=== PATIENT | male | born 1975 | race Caucasian/White ===

== ENCOUNTER 2017-04-26 13:33 | Inpatient (IN) ==
[2017-04-26] MEDS ORDERED: 0.9 % Sodium Chloride 1,000 ML IVC ONE (14:11)
[2017-04-26 14:19] LABS: Basophils % 0.4 %; Eosinophils # 0.3 K/mcL (0.0-0.6); Eosinophils % 5.9 %; Hematocrit 42.8 % (37.5-50.1); Hemoglobin 14.7 g/dL (12.9-16.9); Immature Granulocytes % 0.4 % (0-4); Lymphocytes # 1.9 K/mcL (0.6-4.6); Lymphocytes % 38.9 %; Mean Corpuscular HGB Conc 34.3 g/dL (31.6-35.5); Mean Corpuscular Hemoglobin 30.4 pg (28.0-33.3); Mean Corpuscular Volume 88.4 fL (83.0-100.0); Mean Platelet Volume 10.1 fL (9.4-12.4); Monocytes # 0.4 K/mcL (0.0-1.3); Monocytes % 9.1 %; Neutrophils # 2.2 K/mcL (1.6-8.9); Platelet Count 138 K/mcL (140-400); Red Blood Count 4.84 M/mcL (4.19-5.50); Red Cell Distribution Width 13.1 % (11.5-14.5); Segmented Neutrophils % 45.3 %
[2017-04-26 14:26] LABS: Prothrombin Time 11.1 Seconds (9.4-12.1)
[2017-04-26 14:29] LABS: Activated Partial Thrombo Time 34.9 Seconds (26.0-36.0)
[2017-04-26 14:38] LABS: BUN/Creatinine Ratio 13 (6-26); Blood Urea Nitrogen 11 mg/dL (8-26); Calcium 8.8 mg/dL (8.6-10.8); Carbon Dioxide 20 mEq/L (19-29); Chloride 111 mEq/L (98-109); Glucose 85 mg/dL (70-99); Lipase 71 Units/L (8-78); Osmolality,Calculated 287 (280-300); Potassium 3.6 mEq/L (3.5-4.5); Sodium 139 mEq/L (136-145); eGFR For African Americans > 60 (> 60); eGFR For Non-African Americans > 60 (> 60)
--- NOTE | 2017-04-26 14:57 | Emergency Department Note ---
Disposition Clinical Impression: Enteritis, Lower GI bleed Disposition: Admitted As Inpatient Condition: Good Referrals: Ambreen Berger, PRECIPITATOR [Primary Care Provider] - Forms: ED Satisfaction Letter Time of Disposition: 15:44 GI Bleed HPI - General Chief complaint: ED GI Bleed Stated complaint: rectal bleeding Time Seen by Provider: 04/26/17 13:43 Source: patient Mode of arrival: ambulatory Limitations: no limitations Nursing Notes Reviewed: Yes Vital Signs Reviewed: Yes - History of Present Illness HPI Narrative: 41 year old male with HX of fibromylagia and constipation states that he has had increaed rectal bleeding for the past 3-4 days with increased weakness and sates that he has increased suprapubic pain in addition to increased constipation. PAtinet denies any other surgical history. He states that he has increased his miralax therapy and that today when he passed his stool he noticed increased blood in the toilet which was bright red in color. Patient denies nausea, vomitting, or fevers. he does states that he has had difficulty with urination due to pain altohough is able to urinate appropiately. Patient denies any other history of abdomnilal surgeries. He states his last colonoscopy was over 5 years ago and it was normal then but he has a family history of colon CA. - Related Data Home Medications Medication Instructions Recorded Confirmed Advair 250-50 Diskus 05/10/15 05/10/15 Aspirin 05/10/15 05/10/15 CarBAMazepine 05/10/15 05/10/15 Fexofenadine HCl 05/10/15 05/10/15 Fish Oil 500 mg Softgel 05/10/15 05/10/15 Gabapentin 05/10/15 05/10/15 Hydrocodone/Acetaminophen 05/10/15 05/10/15 Ipratropium 05/10/15 05/10/15 LORazepam 05/10/15 05/10/15 Lipitor 05/10/15 05/10/15 Metoprolol 05/10/15 05/10/15 Nexium 05/10/15 05/10/15 Pantoprazole 05/10/15 05/10/15 Proair Hfa 05/10/15 05/10/15 Savella 05/10/15 05/10/15 Tamsulosin 05/10/15 05/10/15 Tizanidine 05/10/15 05/10/15 Topiramate 05/10/15 05/10/15 TraZODone 05/10/15 05/10/15 Previous Rx's Medication Instructions Recorded DiphenhydraMINE [Benadryl] 25 mg PO Q6HR PRN #20 capsule 08/28/15 Hydrocortisone 1% OINT [Cortaid] 1 appl TP BID #1 tube 08/28/15 MethylPREDNISolone [Medrol] 4 mg PO BIDWM #21 tablet 08/28/15 Allergies Allergy/AdvReac Type Severity Reaction Status Date / Time duloxetine [From Cymbalta] AdvReac See Verified 04/26/17 13:40 Comments Constitutional: Denies: fever, chills, weakness, weight change Eyes: Denies: eye pain, eye discharge, vision change ENT ED: Denies: ear pain, throat pain, dental pain, hearing loss, epistaxis, congestion, dysphagia Cardiovascular: Denies: chest pain, palpitations, dyspnea on exertion, edema, syncope Respiratory: Denies: cough, dyspnea, wheezes, hemoptysis, stridor Gastrointestinal: Reports: abdominal pain, nausea, constipation, melena. Denies : vomiting, diarrhea, hematemesis, hematochezia Genitourinary: Denies: urgency, dysuria, frequency, hematuria Musculoskeletal: Denies: back pain, neck pain, arthralgia, myalgia Integumentary: Denies: rash, abrasion, lesions Neurological: Denies: headache, weakness, numbness, paresthesias, confusion, abnormal gait, vertigo Psychiatric: Denies: anxiety, depression, suicidal thoughts, homicidal thoughts , auditory hallucinations, visual hallucinations Endocrine: Denies: fatigue Hematological/Lymphatic: Denies: easy bleeding, easy bruising Allergic/Immunologic: Denies: facial swelling, urticaria Past Medical History - Past Medical History Medical history: Reports: GERD, hyperlipidemia, hypertension Psychiatric history: Reports: no psych history - Social History Smoking Status: Never smoker Smokeless Tobacco Status: No Alcohol use: Reports: none Physical Exam - General Limitations: no limitations General appearance: alert, appears intoxicated - Head Head exam: atraumatic, normocephalic, normal inspection - Eye Eye exam: Present: normal appearance, PERRL, EOMI - Expanded Eye Exam Pupils: Left: reactive - ENT ENT exam: normal exam, normal oropharynx, mucous membranes moist - Expanded ENT Exam External ear exam: Present: normal external inspection Mouth exam: Present: normal external inspection Teeth exam: Present: normal inspection Throat exam: Present: normal inspection - Neck Neck exam: Present: normal inspection, full ROM, trachea midline - Chest Chest inspection: Present: normal inspection, symmetric chest wall rise - Respiratory Respiratory exam: Present: normal lung sounds bilaterally - Cardiovascular Cardiovascular exam: Present: regular rate, normal rhythm, normal heart sounds - Abdominal Exam Abdominal exam: Present: soft, tenderness. Absent: Non-Tender, distention, guarding, rebound, rigidity Abdominal tenderness: Present: suprapubic, moderate - Rectal Exam Rectal exam: Present: normal rectal tone, heme (+) stool, bloody stool, hemorrhoids, tenderness - Extremities Exam Extremities exam: Present: normal inspection, full ROM. Absent: tenderness, pedal edema - Expanded Upper Extremity Exam Shoulder exam: Present: normal inspection, full ROM Arm exam: Present: normal inspection, full ROM Elbow exam: Present: normal inspection, full ROM Forearm/Wrist exam: Present: normal inspection, full ROM Hand exam: Present: normal inspection, full ROM Vascular exam: Normal: capillary refill, radial pulse - Expanded Lower Extremity Exam Hip/Pelvis exam: Present: normal inspection, full ROM Upper leg exam: Present: normal inspection, full ROM Knee exam: Present: normal inspection, full ROM Lower leg exam: Present: normal inspection, full ROM Ankle exam: Present: normal inspection, full ROM Foot/toe exam: Present: normal inspection, full ROM Neurovascular/Tendon exam: Absent: motor deficit, sensory deficit, tendon deficit - Back Exam Back exam: Present: normal inspection, full ROM. Absent: tenderness - Neurological Exam Neurological exam: Present: alert, oriented X3 - Expanded Neurological Exam Patient oriented to: Present: person, place, time Coma Scale Eye Opening: Spontaneous Coma Scale Motor Response: Obeys Commands Coma Scale Verbal Response: Oriented Coma Scale Total: 15 - Psychiatric Psychiatric exam: Present: normal affect, normal mood - Skin Skin exam: Present: warm, dry, intact, normal color Course Course Narrative: we will do a hemmoccult and ABCT with IV contrast and abdominal labs. IVF for therapy. - Reevaluation(s) Reevaluation #1: updatd patient on results. WE will admit to the medicine service due to enteritis and Lower GI bleed. We will start cipro/flagyl. PAtient is agreeable to plan Time: 15:44 Vital Signs Temperature 97.6 F 04/26/17 13:36 Pulse Rate 78 04/26/17 13:36 Respiratory Rate 16 04/26/17 13:36 Blood Pressure 133/72 04/26/17 13:36 O2 Sat by Pulse Oximetry 100 04/26/17 13:36 Temperature 97.6 F 04/26/17 13:36 Pulse Rate 77 04/26/17 15:08 Respiratory Rate 18 04/26/17 15:08 Blood Pressure 113/76 04/26/17 15:08 O2 Sat by Pulse Oximetry 97 04/26/17 15:08 Oxygen Delivery Oxygen Delivery Room Air GI Bleed - Lab Data Result diagrams: 04/26/17 14:09 04/26/17 14:09 Lab Results 04/26/17 04/26/17 04/26/17 Range/Units 14:09 14:09 14:09 WBC 4.8 (4.3-11.1) K/mcL RBC 4.84 (4.19-5.50) M/mcL Hgb 14.7 (12.9-16.9) g/dL Hct 42.8 (37.5-50.1) % MCV 88.4 (83.0-100.0) fL MCH 30.4 (28.0-33.3) pg MCHC 34.3 (31.6-35.5) g/dL RDW 13.1 (11.5-14.5) % Plt Count 138 L (140-400) K/mcL MPV 10.1 (9.4-12.4) fL Immature Gran % 0.4 (0-4) % Seg Neutrophils % 45.3 % Lymphocytes % 38.9 % Monocytes % 9.1 % Eosinophils % 5.9 % Basophils % 0.4 % Neutrophils # 2.2 (1.6-8.9) K/mcL Lymphocytes # 1.9 (0.6-4.6) K/mcL Monocytes # 0.4 (0.0-1.3) K/mcL Eosinophils # 0.3 (0.0-0.6) K/mcL Basophils # 0.0 (0.0-0.2) K/mcL PT 11.1 (9.4-12.1) Seconds INR 1.0 APTT 34.9 (26.0-36.0) Seconds Sodium 139 (136-145) mEq/L Potassium 3.6 (3.5-4.5) mEq/L Chloride 111 H (98-109) mEq/L Carbon Dioxide 20 (19-29) mEq/L BUN 11 (8-26) mg/dL Creatinine 0.84 (0.72-1.25) mg/dL Est GFR ( Amer) > 60 (> 60) Est GFR (Non-Af Amer) > 60 (> 60) BUN/Creatinine Ratio 13 (6-26) Glucose 85 (70-99) mg/dL Calculated Osmolality 287 (280-300) Lactic Acid (0.5-2.2) mmol/L Calcium 8.8 (8.6-10.8) mg/dL Troponin I (0-0.03) ng/mL Lipase 71 (8-78) Units/L Stool Occult Blood (Negative) Blood Type Antibody Screen 04/26/17 04/26/17 04/26/17 Range/Units 14:09 14:25 14:25 WBC (4.3-11.1) K/mcL RBC (4.19-5.50) M/mcL Hgb (12.9-16.9) g/dL Hct (37.5-50.1) % MCV (83.0-100.0) fL MCH (28.0-33.3) pg MCHC (31.6-35.5) g/dL RDW (11.5-14.5) % Plt Count (140-400) K/mcL MPV (9.4-12.4) fL Immature Gran % (0-4) % Seg Neutrophils % % Lymphocytes % % Monocytes % % Eosinophils % % Basophils % % Neutrophils # (1.6-8.9) K/mcL Lymphocytes # (0.6-4.6) K/mcL Monocytes # (0.0-1.3) K/mcL Eosinophils # (0.0-0.6) K/mcL Basophils # (0.0-0.2) K/mcL PT (9.4-12.1) Seconds INR APTT (26.0-36.0) Seconds Sodium (136-145) mEq/L Potassium (3.5-4.5) mEq/L Chloride (98-109) mEq/L Carbon Dioxide (19-29) mEq/L BUN (8-26) mg/dL Creatinine (0.72-1.25) mg/dL Est GFR ( Amer) (> 60) Est GFR (Non-Af Amer) (> 60) BUN/Creatinine Ratio (6-26) Glucose (70-99) mg/dL Calculated Osmolality (280-300) Lactic Acid 1.0 (0.5-2.2) mmol/L Calcium (8.6-10.8) mg/dL Troponin I 0.00 (0-0.03) ng/mL Lipase (8-78) Units/L Stool Occult Blood (Negative) Blood Type O NEGATIVE Antibody Screen NEGATIVE 04/26/17 Range/Units 14:36 WBC (4.3-11.1) K/mcL RBC (4.19-5.50) M/mcL Hgb (12.9-16.9) g/dL Hct (37.5-50.1) % MCV (83.0-100.0) fL MCH (28.0-33.3) pg MCHC (31.6-35.5) g/dL RDW (11.5-14.5) % Plt Count (140-400) K/mcL MPV (9.4-12.4) fL Immature Gran % (0-4) % Seg Neutrophils % % Lymphocytes % % Monocytes % % Eosinophils % % Basophils % % Neutrophils # (1.6-8.9) K/mcL Lymphocytes # (0.6-4.6) K/mcL Monocytes # (0.0-1.3) K/mcL Eosinophils # (0.0-0.6) K/mcL Basophils # (0.0-0.2) K/mcL PT (9.4-12.1) Seconds INR APTT (26.0-36.0) Seconds Sodium (136-145) mEq/L Potassium (3.5-4.5) mEq/L Chloride (98-109) mEq/L Carbon Dioxide (19-29) mEq/L BUN (8-26) mg/dL Creatinine (0.72-1.25) mg/dL Est GFR ( Amer) (> 60) Est GFR (Non-Af Amer) (> 60) BUN/Creatinine Ratio (6-26) Glucose (70-99) mg/dL Calculated Osmolality (280-300) Lactic Acid (0.5-2.2) mmol/L Calcium (8.6-10.8) mg/dL Troponin I (0-0.03) ng/mL Lipase (8-78) Units/L Stool Occult Blood Positive A (Negative) Blood Type Antibody Screen - EKG Data EKG attestation: Yes I reviewed and interpreted this EKG. EKG results narrative: NSR with rat eof 62. NO STEMI. normal intervals. no old ekg. 1420
[2017-04-26] MEDS ORDERED: MetroNIDAZOLE 500 MG/100 ML 500 MG/100 ML BAG IVPB ONE (15:29)
[2017-04-26] MEDS ORDERED: Ondansetron 4 MG/2 ML VIAL IVP PRN (18:38)
[2017-04-26] MEDS ORDERED: Naloxone 0.4 MG/ML INJ IVP PRN (18:38)
[2017-04-26] MEDS ORDERED: Acetaminophen 325 MG TABLET PO PRN (18:38)
--- NOTE | 2017-04-26 19:13 | Internal Med History&Physical ---
<Benigno Holcomb - Last Filed: 04/26/17 20:17> Date of Encounter: 04/26/17 Time of Encounter: 18:00 Assessment and Plan (1) Enteritis Current visit: Yes Status: Acute Patient presents with rectal bleeding as well as pain that he states is in his abdomen, suprapubic area, and perianal area. These areas are very tender during examination. CT of the abdomen/pelvis with IV contrast but no oral contrast today shows a few borderline to mildly dilated small bowel loops, some distended with fluid. These findings can be associated with a low-grade enteritis. Patient's pain most likely related to current infection. Patient received IV Flagyl and ciprofloxacin while in the ED and these will be continued with IV Flagyl at 500 mg Q8 and IV ciprofloxacin at 400 mg Q12. GI consult ordered and discussed with Dr. Muse who will see the patient. Will monitor patient for signs of increasing pain, infection, and/or bleeding. (2) GI bleeding Current visit: Yes Status: Acute Patient presents with acute on chronic GI bleed. He states he has had black, tarry stool for the past 24 hours along with bright blood in his underwear that is likely related to GI bleed of unknown source as well as hemorrhoids based on patient's report of previous hemorrhoids. Patient's current Hgb/Hct is 14.7/ 42.8. He states that he is now unable to have a bowel movement at the present time. He reports use of Miralax at home. GI consult ordered and discussed with Dr. Muse who recommends holding bowel prep until he can assess patient further. Will monitor patient for bleeding and monitor follow-up labs. Qualifiers: GI bleed type/associated pathology: unspecified gastrointestinal hemorrhage type Qualified Code(s): K92.2 - Gastrointestinal hemorrhage, unspecified (3) Urinary hesitancy Current visit: Yes Status: Acute Patient presents with acute urinary hesitancy. He states that he has had trouble with urination in the past due to his enlarged prostate. He currently states that he cannot urinate without difficulty. Bladder scan reveals 328 residual. Patient attempted to urinate but could not. PSA ordered to monitor BPH. Urinary hesitancy most likely related to patient's BPH but could also be due to swelling/edema related to current enteritis interfering with his bladder. Will insert Jacob catheter if necessary to help patient void and reduce his pain/discomfort. Urine culture ordered to assess for possible infection. (4) Weakness Current visit: Yes Status: Acute Patient presents with acute weakness most likely related to his chronic pain and current symptoms of enteritis. Patient to be placed as falls precautions/up with assist/bed rest with bathroom privileges with assist only due to current weakness. (5) Tobacco abuse counseling Current visit: Yes Status: Acute Patient reports use of chewing tobacco due to anxiety. Patient counseled greater than 10 minutes on the dangers of tobacco use and potential cancer risk and his history of familial cancers. Patient confirms understanding of counseling and discussion and expresses a desire to discontinue use of oral tobacco use. (6) GERD (gastroesophageal reflux disease) Current visit: Yes Status: Chronic Patient presents with history of chronic gastroesophageal reflux disease. Patient states he has long history of GI issues since he was a child. IVP Protonix 40 mg daily ordered. Qualifiers: Esophagitis presence: esophagitis presence not specified Qualified Code(s) : K21.9 - Gastro-esophageal reflux disease without esophagitis (7) HTN (hypertension) Current visit: Yes Status: Chronic Patient presents with history of chronic hypertension. Will monitor patient vital signs and continue patient's lisinopril and metoprolol. Qualifiers: Hypertension type: essential hypertension Qualified Code(s): I10 - Essential (primary) hypertension (8) HLD (hyperlipidemia) Current visit: Yes Status: Chronic Patient presents with history of chronic hyperlipidemia. Lipid panel ordered. Will continue patient's Lipitor and fish oil by mouth. Qualifiers: Hyperlipidemia type: pure hypercholesterolemia Qualified Code(s): E78.00 - Pure hypercholesterolemia, unspecified; E78.0 - Pure hypercholesterolemia (9) COPD (chronic obstructive pulmonary disease) Current visit: Yes Status: Acute Patient presents with history of chronic COPD and current shortness of breath. Patient denies use of home O2 but will be placed on supplemental O2 with continuous SpO2 monitoring due to current SOB and weakness. DuoNebs ordered Q6 scheduled. Qualifiers: COPD type: unspecified COPD Qualified Code(s): J44.9 - Chronic obstructive pulmonary disease, unspecified (10) Irritable bowel syndrome (IBS) Current visit: Yes Status: Acute Patient presents with history of chronic IBS with constipation. Patient reports he takes Miralax daily to help with constipation but reports that since passing the black stools over the past 48 hours, he now unable to have a BM. He reports stools were small in amount, solid, and frequent. He states he feels bloated and that he needs to have a BM but cannot due to current pain. Will continue with Colace PO and use Miralax if not successful. Will hold Miralax/Gatorade bowel prep for evacuation per Dr. Muse who has agreed to consult on the patient. Will monitor I&O and stool for signs of bleeding. Qualifiers: Irritable bowel syndrome type: with constipation Qualified Code(s): K58.1 - Irritable bowel syndrome with constipation (11) DVT prophylaxis Current visit: Yes Status: Acute Patient to be placed on DVT prophylaxis due to current admission protocol and bed rest status. Due to current GI bleeding, pharmacologic DVT prophylaxis is contraindicated and will be replaced with bilateral SCDs on patient's LEs. Internal Medicine - H&P: HPI Chief complaint: Rectal bleeding Admitted From: Emergency Dept Plans for Post Hospital Care: Home History of present illness: Mr. Wood is a 41 year old male who presents from the ED with chief complaint of rectal bleeding. He reports black stool for the past two days mixed with bright red blood in his underwear. Patient states that 48 hours ago the black stool was in small amounts but he went frequently. Now he reports that he cannot deficate at all and he is now having difficulty urinating as well. Ordered bladder scan showed [address] of the abdomen/pelvis today w ith IV but no oral contrast shows a few borderline to mildly dilated small bowel loops, some distended with fluid. These findings can be associated with low-grade enteritis Mr. Wood has a medical history of IBS , chronic constipation, GERD, COPD, HTN, HLD, BPH, and fibromyalgia. He currently reports abdominal pain, suprapubic pain, as well as perianal pain. He reports weakness, shortness of breath, and nausea but denies vomiting, fever, recent illness, vision changes, cough, chest pain, numbness, tingling, or diarrhea. Patient's family has a history of cancer, including colon. Patient is at high risk for bleeding based on current symptoms and risk factors and will be placed as inpatient status with orders for GI consult which was placed and discussed with Dr. Muse. Patient received IV Flagyl and IV ciprofloxacin while in the ED and we will continue the Flagyl at 500 mg IVPB Q8 and the ciprofloxacin at 40 mg at Q12. IV fluids at 100mL/HR ordered. Will administer pain medication to help patient relax to determine if he is able to urinate. If unable, will initiate Jacob catheter. Patient placed on continuous telemetry, supplemental O2 for his COPD, and we will measure I&O and daily weight. Patient to be monitored closely for blood loss and H/H status (which is currently within normal range) through follow-up labs. PSA ordered to determine if patient 's BPH is interfering with urination. Time spent with patient and family >40 minutes. Past Med Surg Social Fam HX - Past Medical History Source: patient Medical history: COPD, fibromyalgia, GERD, hyperlipidemia, hypertension, other ( IBS) Psychiatric history: anxiety, depression - Social History Smoking Status: Never smoker Smokeless Tobacco Status: No Alcohol use: none Drug use: none Current living situation: Home, With Family Activity Level: Independent ambulation Recent Out of Country Travel Within the Last 8 Weeks: No Exposure or Possible Exposure to Illness During Travel: No - Family History Mother Race: Family Member Ethnicity: Non- Living Status: Age at : 65 Cause of : Hodgkins lymphoma Hx Family Cardiac Disorders: Yes (HD) Hx Family Cancer: Yes (Hodgkins lymphoma, Breast cancer) Father Race: Family Member Ethnicity: Non- Living Status: Age at : 73 Hx Family Respiratory Disorders: Yes (Fungus on lungs, Lobectomy) Hx Family Endocrine Disorder: Yes (Addisons disease) Brother Race: Family Member Ethnicity: Non- Living Status: Age at : 54 Cause of : Colon cancer Hx Family Cancer: Yes (Colon Cancer) Sister Race: Family Member Ethnicity: Non- Living Status: Still Living Hx Family Cancer: Yes (Female cancer, Breast cancer) Internal Medicine - H&P: Meds Albuterol Sulfate [Proair Hfa] 2 puff IH Q4-6H PRN 04/26/17 [History] Atorvastatin Calcium [Lipitor] 80 mg PO HS 04/26/17 [History] Cholecalciferol (D-3) [Vitamin D] 5,000 unit PO DAILY 04/26/17 [History] Esomeprazole Magnesium [Nexium] 40 mg PO QAM 04/26/17 [History] Fexofenadine HCl 180 mg PO DAILY 04/26/17 [History] Fluticasone/Salmeterol [Advair 250-50 Diskus] 1 puff IH BID 04/26/17 [History] Gabapentin [Neurontin] 300 mg PO BID 04/26/17 [History] HYDROcodone/Acet 10/325 mg [Tracy 10-325 mg] 1 tab PO BID PRN 04/26/17 [History] Ipratropium [place] 2 spr NS BID 04/26/17 [History] Lisinopril [Zestril] 10 mg PO DAILY 04/26/17 [History] Metoprolol Succinate 25 mg PO DAILY 04/26/17 [History] Milnacipran HCl [Savella] 50 mg PO DAILY 04/26/17 [History] Montelukast [Singulair] 10 mg PO DAILY 04/26/17 [History] Heron-3/Dha/Epa/Fish Oil [Fish Oil 1,000 mg Softgel] 1 cap PO DAILY 04/26/17 [ History] Pantoprazole Sodium [Protonix] 40 mg PO DAILY 04/26/17 [History] Tamsulosin HCl [Flomax] 0.4 mg PO DAILY 04/26/17 [History] Tizanidine HCl [Zanaflex] 8 mg PO HS 04/26/17 [History] Topiramate [Topamax] 200 mg PO BID 04/26/17 [History] Trazodone HCl 300 mg PO HS 04/26/17 [History] carBAMazepine [Tegretol] 200 mg PO BID 04/26/17 [History] diazePAM [Valium] 2 mg PO BID 04/26/17 [History] Allergies duloxetine [From Cymbalta] Adverse Reaction (Verified 04/26/17 15:55) See Comments ALTERED MENTAL STATUS All Systems PM: A 10-system review of systems was performed and is negative for pertinent findings except as documented above in the HPI. - Constitutional Constitutional: as per HPI, weakness, no chills, no fever(s), no night sweats - EENT Eyes: no change in vision, no discharge, no pain, no photophobia Ears: no ear discharge, no ear pain, no tinnitus Nose, mouth and throat: no dysphagia, no nasal discharge, no neck pain, no sore throat - Breasts Breasts: as per HPI - Cardiovascular Cardiovascular ROS IM: as per HPI, dyspnea, no chest pain, no diaphoresis, no lightheadedness, no palpitations, no syncope - Respiratory Respiratory: as per HPI, dyspnea, no cough, no wheezing, no excessive phlegm production - Gastrointestinal Gastrointestinal: as per HPI, abdominal pain, change in bowel habits, change in stool character, constipation, melena, nausea - Genitourinary Genitourinary ROS male: as per HPI, difficulty urinating, dysuria, urinary hesitancy - Musculoskeletal Musculoskeletal ROS IM: no numbness, no tingling - Integumentary Integumentary IM: no rash, no unusual bruising - Neurological Neurological ROS: no confusion, no convulsions, no focal weakness, no numbness, no tingling, no tremor(s) - Psychiatric Psychiatric: as per HPI - Endocrine Endocrine IM: as per HPI - Hematologic/Lymphatic Hematologic/Lymphatic: no easy bruising - Allergic/Immunologic Allergic/Immunologic: as per HPI - Constitutional Vitals: Temp Pulse Resp BP Pulse Ox 97.6 F 77 18 148/97 97 04/26/17 13:36 04/26/17 15:08 04/26/17 17:09 04/26/17 17:09 04/26/17 15:08 General appearance: Present: cooperative, mild distress, A&O X 3, pleasant, obese, answers questions appropriately - Head Head exam: Present: atraumatic, normocephalic - Eye Eye exam: Present: PERRL, conjuntiva pink, sclera anicteric Pupils: Present: PERRL - ENT ENT exam: Present: normal exam, normal external ear exam - Neck Neck exam general surgery: Present: normal inspection, supple, trachea midline. Absent: lymphadenopathy - Respiratory Respiratory exam: Present: CTAB. Absent: accessory muscle use, rales, rhonchi, wheezes - Cardiovascular Cardiovascular exam: Present: RRR, +S1, +S2. Absent: diastolic murmur, gallop, rubs, systolic murmur - GI/Abdominal GI/Abdominal exam: Present: diminished bowel sounds, soft, no peritoneal signs. Absent: distended, tenderness - Rectal Rectal exam: Present: deferred (Due to extreme rectal pain. Patient reports previous exam yielded bright red blood.) - Additional comments: exam deferred. - Extremities Exam Extremities exam: Present: warm, radial pulses palpable and symmetrical. Absent : calf tenderness, cyanotic, pedal edema - Back Exam Back exam: Present: normal inspection - Neurological Exam Neurological exam: Present: CN II-XII intact, oriented X3, no focal deficits. Absent: pronater drift, facial droop, speech deficit - Psychiatric Psychiatric exam: Present: normal affect, normal mood - Skin Skin exam: Present: dry, intact Internal Med - H&P Results - Labs CBC & Chem 7: 04/26/17 14:09 04/26/17 14:09 - EKG Data EKG shows normal: sinus rhythm Rate: normal - EKG Data Prior EKG available for review: no Interpretation IM: normal EKG - Diagnostic Studies CT scan - abdomen Additional comments: Impressions Abdomen/Pelvis CT 04/26/17 14:11 IMPRESSION: 1. A few borderline to mildly dilated small bowel loops, some distended with fluid. These findings can be associated with a low-grade enteritis. 2. A few additional incidental findings as above. D/ / Chaitanya Bansal MD / Chaitanya Bansal MD Interpreting Provider: Chaitanya Bansal MD <Koby Esteban - Last Filed: 04/27/17 08:39> Date of Encounter: 04/27/17 Internal Medicine - H&P: HPI History of present illness: Mr. Wood is a 41 year old male All Systems PM: A 10-system review of systems was performed and is negative for pertinent findings except as documented above in the HPI. - Constitutional Vitals: Temp Pulse Resp BP Pulse Ox 97.6 F 64 18 104/59 98 04/27/17 05:50 04/27/17 05:50 04/27/17 05:50 04/27/17 05:50 04/27/17 05:50 Internal Med - H&P Results - Labs CBC & Chem 7: 04/27/17 02:46 04/27/17 02:46 Labs: Short CBC 04/27/17 Range/Units 02:46 WBC 5.9 (4.3-11.1) K/mcL Hgb 13.6 (12.9-16.9) g/dL Hct 39.0 (37.5-50.1) % Plt Count 140 (140-400) K/mcL Neutrophils # 2.8 (1.6-8.9) K/mcL BMP 04/27/17 02:46 Sodium 144 Potassium 3.8 Chloride 115 H Carbon Dioxide 22 BUN 9 Creatinine 0.92 Glucose 91 Calcium 8.9 Liver Function 04/27/17 Range/Units 02:46 Total Bilirubin 0.5 (0.2-1.2) mg/dL Direct Bilirubin 0.2 (0.0-0.5) mg/dL AST 17 (5-34) Units/L ALT 39 (0-55) Units/L Alkaline Phosphatase 69 (38-126) Units/L Albumin 3.3 L (3.5-5.0) g/dL - Attending Attestation I examined this patient and my medical decision-making was reviewed with the [employer]. I agree with the documented findings, disposition and treatment plan as described .
[2017-04-26] MEDS: 0.9 % Sodium Chloride 1,000 ML IVC SCH (19:36)
[2017-04-26] MEDS: Pantoprazole 40 MG VIAL IVP SCH (19:37)
[2017-04-26] MEDS: *HR* Morphine 2 MG/ML SYRINGE IVP PRN (19:37)
[2017-04-26] MEDS: Ipratropium/Albuterol Neb 3 ML IH SCH ×2 (20:10→21:13)
[2017-04-26] MEDS: traZODone 50 MG TABLET PO SCH (20:18)
[2017-04-26] MEDS: Topiramate 100 MG TABLET PO SCH (20:19)
[2017-04-26] MEDS: carBAMazepine 200 MG TABLET PO SCH (20:19)
[2017-04-26] MEDS: Gabapentin 300 MG CAPSULE PO SCH (20:20)
[2017-04-26] MEDS: tiZANidine 4 MG TABLET PO SCH (20:20)
[2017-04-26] MEDS: *HR* HYDROcodone/Acet 5/325 mg TABLET PO PRN (21:34)
[2017-04-26] MEDS: diazePAM 2 MG TABLET PO SCH (21:35)
[2017-04-26] MEDS: MetroNIDAZOLE 500 MG/100 ML 500 MG/100 ML BAG IVPB SCH (23:53)
[2017-04-27 03:04] LABS: Basophils % 0.2 %; Eosinophils # 0.3 K/mcL (0.0-0.6); Eosinophils % 5.4 %; Hemoglobin 13.6 g/dL (12.9-16.9); Immature Granulocytes % 0.5 % (0-4); Lymphocytes # 2.3 K/mcL (0.6-4.6); Lymphocytes % 38.7 %; Mean Corpuscular HGB Conc 34.9 g/dL (31.6-35.5); Mean Corpuscular Hemoglobin 31.3 pg (28.0-33.3); Mean Corpuscular Volume 89.9 fL (83.0-100.0); Mean Platelet Volume 10.6 fL (9.4-12.4); Monocytes # 0.5 K/mcL (0.0-1.3); Monocytes % 7.8 %; Neutrophils # 2.8 K/mcL (1.6-8.9); Platelet Count 140 K/mcL (140-400); Red Blood Count 4.34 M/mcL (4.19-5.50); Red Cell Distribution Width 13.1 % (11.5-14.5); Segmented Neutrophils % 47.4 %
[2017-04-27 03:12] LABS: INR 1.1; Prothrombin Time 11.7 Seconds (9.4-12.1)
[2017-04-27 03:14] LABS: Activated Partial Thrombo Time 34.7 Seconds (26.0-36.0)
[2017-04-27 03:17] LABS: Albumin 3.3 g/dL (3.5-5.0); Albumin/Globulin Ratio 1.2 (1.1-2.2); Bilirubin,Direct 0.2 mg/dL (0.0-0.5); Bilirubin,Indirect 0.3 mg/dL (0.0-1.2); Bilirubin,Total 0.5 mg/dL (0.2-1.2); Globulin 2.7 g/dL (2.4-3.5)
[2017-04-27 03:18] LABS: BUN/Creatinine Ratio 10 (6-26); Blood Urea Nitrogen 9 mg/dL (8-26); Calcium 8.9 mg/dL (8.6-10.8); Carbon Dioxide 22 mEq/L (19-29); Chloride 115 mEq/L (98-109); Chol/HDL Ratio 8.8 (0-4.9); Cholesterol 211 mg/dL (< 200); Glucose 91 mg/dL (70-99); HDL Cholesterol 24 mg/dL (40-59); LDL Cholesterol,Calculated 121 mg/dL (0-99); Magnesium 1.7 mg/dL (1.6-2.6); Osmolality,Calculated 296 (280-300); Potassium 3.8 mEq/L (3.5-4.5); Sodium 144 mEq/L (136-145); Triglycerides 330 mg/dL (< 150); eGFR For African Americans > 60 (> 60); eGFR For Non-African Americans > 60 (> 60)
[2017-04-27] MEDS: Ipratropium/Albuterol Neb 3 ML IH SCH ×4 (03:50→22:28)
[2017-04-27] MEDS: *HR* Morphine 2 MG/ML SYRINGE IVP PRN (06:48)
[2017-04-27] MEDS: MetroNIDAZOLE 500 MG/100 ML 500 MG/100 ML BAG IVPB SCH ×2 (08:00→15:37)
[2017-04-27] MEDS: Pantoprazole 40 MG VIAL IVP SCH (08:05)
[2017-04-27] MEDS: Gabapentin 300 MG CAPSULE PO SCH ×2 (08:11→21:31)
[2017-04-27] MEDS: diazePAM 2 MG TABLET PO SCH ×2 (08:11→21:29)
[2017-04-27] MEDS: Loratadine 10 MG TABLET PO SCH (08:11)
[2017-04-27] MEDS: Metoprolol XL (24 HR) Succ 25 MG TAB.ER.24H PO SCH ×3 (08:12→17:50)
[2017-04-27] MEDS: Topiramate 100 MG TABLET PO SCH ×2 (08:12→21:30)
[2017-04-27] MEDS: carBAMazepine 200 MG TABLET PO SCH ×2 (08:14→21:31)
[2017-04-27] MEDS: Cholecalciferol (D-3) 1,000 UNIT TABLET PO SCH (08:15)
[2017-04-27 10:20] LABS: Bilirubin,Urine Negative (Negative); Blood,Urine Negative (Negative); Clarity,Urine Clear (Clear); Color,Urine Yellow (Yellow); Glucose,Urine (UA) Normal (Normal); Ketones,Urine Negative (Negative); Leukocyte Esterase,Urine Negative (Negative); Nitrite,Urine Negative (Negative); PH,Urine 5.5 pH Units (5.0-8.0); Protein,Urine Negative (Neg-Trace); Specific Gravity,Urine 1.022 (1.010-1.025); Urobilinogen,Urine Normal (Normal)
[2017-04-27] MEDS: 0.9 % Sodium Chloride 1,000 ML IVC SCH (12:03)
--- NOTE | 2017-04-27 14:07 | Internal Med Progress Note ---
Date of Encounter: 04/27/17 Time of Encounter: 11:10 - Assessment and plan (1) GI bleeding Current Visit: Yes Status: Acute Assessment and plan: Hemoglobin levels are stable. Currently nothing by mouth but will start clears if patient does not have any further episodes of GI bleed. Gastroenterology has been consulted. We will follow recommendations. on IV Protonix. Moderate risk for complications Qualifiers: GI bleed type/associated pathology: anorectal hemorrhage Qualified Code(s) : K62.5 - Hemorrhage of anus and rectum (2) Enteritis Current Visit: Yes Status: Acute Assessment and plan: Being treated for enteritis with ciprofloxacin and Flagyl. No signs of systemic inflammation (3) COPD (chronic obstructive pulmonary disease) Current Visit: Yes Status: Chronic Assessment and plan: On bronchodilators. Not in acute exacerbation Qualifiers: COPD type: unspecified COPD Qualified Code(s): J44.9 - Chronic obstructive pulmonary disease, unspecified (4) GERD (gastroesophageal reflux disease) Current Visit: Yes Status: Chronic Assessment and plan: Continue PPI Qualifiers: Esophagitis presence: esophagitis presence not specified Qualified Code(s) : K21.9 - Gastro-esophageal reflux disease without esophagitis (5) HLD (hyperlipidemia) Current Visit: Yes Status: Chronic Assessment and plan: Continue atorvastatin. Cholesterol levels are elevated Qualifiers: Hyperlipidemia type: pure hypercholesterolemia Qualified Code(s): E78.00 - Pure hypercholesterolemia, unspecified; E78.0 - Pure hypercholesterolemia (6) HTN (hypertension) Current Visit: Yes Status: Chronic Assessment and plan: Blood pressure is well controlled Qualifiers: Hypertension type: essential hypertension Qualified Code(s): I10 - Essential (primary) hypertension (7) Irritable bowel syndrome (IBS) Current Visit: Yes Status: Chronic Assessment and plan: Chronic condition. GI to evaluate patient Qualifiers: Irritable bowel syndrome type: with constipation Qualified Code(s): K58.1 - Irritable bowel syndrome with constipation (8) Urinary hesitancy Current Visit: Yes Status: Acute Assessment and plan: Patient is able to urinate without difficulty. On Flomax. Recommend outpatient follow-up with urology (9) Weakness Current Visit: Yes Status: Acute Assessment and plan: Likely related to GI bleed. Continue IV hydration. (10) DVT prophylaxis Current Visit: Yes Status: Acute Assessment and plan: With SCDs - Subjective Interval history: Patient complains of abdominal pain along with nausea. He has not had any bowel movements today. Does report a history of hemorrhoids and is also complaining of difficulty passing urine. No fever or night sweats reported. Feels hungry and thirsty and wants some ice chips. - Constitutional Vitals: Temp Pulse Resp BP Pulse Ox 97.5 F L 60 16 92/55 97 04/27/17 12:10 04/27/17 12:10 04/27/17 12:10 04/27/17 12:10 04/27/17 12:10 General appearance: Present: cooperative, A&O X 3, pleasant, obese, answers questions appropriately - Neck Neck exam general surgery: Present: supple, trachea midline. Absent: lymphadenopathy - Cardiovascular Cardiovascular exam: Present: RRR, +S1, +S2. Absent: diastolic murmur, gallop, rubs, systolic murmur - GI/Abdominal GI/Abdominal exam: Present: normal bowel sounds, soft, no peritoneal signs. Absent: distended, tenderness - Extremities Exam Extremities exam: Present: warm, radial pulses palpable and symmetrical. Absent : calf tenderness, cyanotic, pedal edema - Neurological Exam Neurological exam: Present: alert, CN II-XII intact, oriented X3, no focal deficits, strengths equal and symetr throughout. Absent: facial droop, speech deficit Internal Medicine: Result - Labs CBC & Chem 7: 04/27/17 02:46 04/27/17 02:46 Labs: Short CBC 04/27/17 Range/Units 02:46 WBC 5.9 (4.3-11.1) K/mcL Hgb 13.6 (12.9-16.9) g/dL Hct 39.0 (37.5-50.1) % Plt Count 140 (140-400) K/mcL Neutrophils # 2.8 (1.6-8.9) K/mcL BMP 04/27/17 02:46 Sodium 144 Potassium 3.8 Chloride 115 H Carbon Dioxide 22 BUN 9 Creatinine 0.92 Glucose 91 Calcium 8.9 Liver Function 04/27/17 Range/Units 02:46 Total Bilirubin 0.5 (0.2-1.2) mg/dL Direct Bilirubin 0.2 (0.0-0.5) mg/dL AST 17 (5-34) Units/L ALT 39 (0-55) Units/L Alkaline Phosphatase 69 (38-126) Units/L Albumin 3.3 L (3.5-5.0) g/dL Urine 04/27/17 Range/Units 09:50 Urine Color Yellow (Yellow) Urine Clarity Clear (Clear) Urine pH 5.5 (5.0-8.0) pH Units Ur Specific [place] 1.022 (1.010-1.025) Urine Protein Negative (Neg-Trace) mg/dL Urine Glucose (UA) Normal (Normal) mg/dL - ABG Interpretation ABG results: PT/INR, D-dimer PT 11.7 Seconds (9.4-12.1) 04/27/17 02:46 Consult Discharge Plan - Plan Referrals: Ambreen Berger, [facility]OVER [Primary Care Provider] -
[2017-04-27] MEDS: D5% in 0.9% NACL 1,000 ML IVC SCH (15:29)
--- NOTE | 2017-04-27 17:36 | Electrocardiograph Report ---
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
[2017-04-27] MEDS: traZODone 50 MG TABLET PO SCH (21:29)
[2017-04-27] MEDS: tiZANidine 4 MG TABLET PO SCH (21:30)
[2017-04-28] MEDS: Ipratropium/Albuterol Neb 3 ML IH SCH ×2 (03:35→10:49)
[2017-04-28] MEDS: D5% in 0.9% NACL 1,000 ML IVC SCH (05:51)
[2017-04-28] MEDS: *HR* HYDROcodone/Acet 5/325 mg TABLET PO PRN (05:53)
[2017-04-28 06:09] LABS: Hematocrit 39.5 % (37.5-50.1); Hemoglobin 13.3 g/dL (12.9-16.9)
[2017-04-28] MEDS: Gabapentin 300 MG CAPSULE PO SCH ×2 (09:14→20:40)
[2017-04-28] MEDS: Loratadine 10 MG TABLET PO SCH (09:14)
[2017-04-28] MEDS: Cholecalciferol (D-3) 1,000 UNIT TABLET PO SCH (09:14)
[2017-04-28] MEDS: Pantoprazole 40 MG VIAL IVP SCH (09:14)
[2017-04-28] MEDS: MetroNIDAZOLE 500 MG/100 ML 500 MG/100 ML BAG IVPB SCH ×3 (09:14→16:23)
[2017-04-28] MEDS: carBAMazepine 200 MG TABLET PO SCH ×2 (09:15→20:40)
[2017-04-28] MEDS: diazePAM 2 MG TABLET PO SCH ×2 (09:15→20:41)
[2017-04-28] MEDS: Topiramate 100 MG TABLET PO SCH ×2 (09:15→20:41)
--- NOTE | 2017-04-28 10:56 | Gastroenterology Consult Note ---
<GlassChaitanya Matthew - Last Filed: 04/28/17 10:53> Date of Encounter: 04/28/17 Time of Encounter: 10:05 - Assessment and plan (1) Enteritis Current Visit: Yes Status: Acute Assessment and plan: CT A/P showed a few borderline to mildly dilated small bowel loops, some distended with fluid, which could be associated with low-grade enteritis. Continue IV ATBs. (2) GI bleeding Current Visit: Yes Status: Acute Assessment and plan: Pt with melena and BRBPR. Hgb 14.7 on admission and 13.3 today. Plan for EGD today to r/o esophagitis, gastritis, duodenitis, PUD, MW tear, or AVM. If EGD negative will plan for colonoscopy tomorrow. Qualifiers: GI bleed type/associated pathology: anorectal hemorrhage Qualified Code(s) : K62.5 - Hemorrhage of anus and rectum (3) GERD (gastroesophageal reflux disease) Current Visit: Yes Status: Chronic Assessment and plan: Continue PPI. Qualifiers: Esophagitis presence: esophagitis presence not specified Qualified Code(s) : K21.9 - Gastro-esophageal reflux disease without esophagitis (4) Irritable bowel syndrome (IBS) Current Visit: Yes Status: Chronic Assessment and plan: Use daily fiber supplement and Miralax up to BID. Qualifiers: Irritable bowel syndrome type: with constipation Qualified Code(s): K58.1 - Irritable bowel syndrome with constipation (5) Dysphagia Current Visit: Yes Status: Acute Assessment and plan: Plan for EGD today with possible dilation. Qualifiers: Dysphagia type: unspecified Qualified Code(s): R13.10 - Dysphagia, unspecified - Time Spent With Patient Total time spent is greater than 50% in coordination of care (as documented) at patient's floor/unit and/or counseling patient: GI History of Present Illness - Data of Consult Patient: new to practice Consult date: 04/28/17 Requesting Physician: Roselyn Doty MD - Consult Narrative Reason for consult: Black stool, FOBT positive, BRBPR History of present illness: Mr. Wood is a 41 year old male with PMHx of COPD, fibromyalgia, GERD, HLD, HTN, and IBS who presented to the ED with rectal bleeding. He reported black stool for the two days prior to admission, mixed with bright red blood in his underwear. Patient stated that 48 hours prior to admission the black stool was in small amounts but was occuring frequently, but then stated he was unable to deficate at all. CT A/P showed a few borderline to mildly dilated small bowel loops, some distended with fluid, which could be associated with low-grade enteritis. He reported weakness, SOB, and nausea. He denies fever, chills, chest pain, vomiting, or diarrhea. Patient received IV Flagyl and IV Ciprofloxacin while in the ED and was continued on Flagyl and Cipro once admitted. Pt also complains of dysphagia with solids and liquids. Procedures: Colonoscopy 09/03/2011 Dr. Freeman: Melanosis in the colon, nonspecific inflammation. NSAIDs: None Anticoagulation: None Past Med Surg Social Fam HX - Past Medical History Medical history: COPD, fibromyalgia, GERD, hyperlipidemia, hypertension, other ( IBS) Psychiatric history: anxiety, depression - Social History Smoking Status: Never smoker Smokeless Tobacco Status: No Alcohol use: none Drug use: none - Family History Mother Race: Family Member Ethnicity: Non- Living Status: Age at : 65 Cause of : Hodgkins lymphoma Hx Family Cardiac Disorders: Yes (HD) Hx Family Cancer: Yes (Hodgkins lymphoma, Breast cancer) Father Race: Family Member Ethnicity: Non- Living Status: Age at : 73 Hx Family Respiratory Disorders: Yes (Fungus on lungs, Lobectomy) Hx Family Endocrine Disorder: Yes (Addisons disease) Brother Race: Family Member Ethnicity: Non- Living Status: Age at : 54 Cause of : Colon cancer Hx Family Cancer: Yes (Colon Cancer) Sister Race: Family Member Ethnicity: Non- Living Status: Still Living Hx Family Cancer: Yes (Female cancer, Breast cancer) - Gastrointestinal Gastrointestinal: Present: as per HPI - Constitutional Constitutional: as per HPI - EENT Eyes: as per HPI Ears: Present: as per HPI Nose, mouth and throat: Present: as per HPI - Cardiovascular Cardiovascular ROS: Present: as per HPI - Respiratory Respiratory IM: Present: as per HPI - Genitourinary Genitourinary: Absent: change in color, Urinary frequency - Neurological ROS Neurological GI: Present: as per HPI - Hematologic/Lymphatic Hematologic/Lymphatic pediatric: Present: as per HPI - Musculoskeletal Musculoskeletal ROS GI: Present: as per HPI - Integumentary Integumentary GI: Present: as per HPI - Psychiatric ROS Psychiatric GI: Present: as per HPI - Endocrine Endocrine IM: Present: as per HPI - Constitutional Vitals: Temp Pulse Resp BP Pulse Ox 97.7 F 74 18 113/66 96 04/28/17 07:33 04/28/17 07:33 04/28/17 07:33 04/28/17 07:33 04/28/17 07:33 General appearance: Present: cooperative, A&O X 3, no acute distress, answers questions appropriately - Head Head exam: Present: atraumatic, normocephalic - Eye Eye exam: Present: normal appearance, sclera anicteric - ENT ENT exam: Present: mucous membranes dry - Neck Neck exam general surgery: Present: normal inspection, trachea midline - Respiratory Respiratory exam: Present: CTAB. Absent: rales, rhonchi - Cardiovascular Cardiovascular exam: Present: RRR, +S1, +S2 - GI/Abdominal GI/Abdominal exam: Present: soft, no peritoneal signs. Absent: distended, firm , guarding, tenderness - Rectal Rectal exam: Present: deferred - Extremities Exam Extremities exam: Present: warm - Neurological Exam Neurological exam: Present: no focal deficits - Psychiatric Psychiatric exam: Present: normal affect, normal mood - Skin Skin exam: Present: dry, intact, normal color, warm Results - Labs CBC & Chem 7: 04/28/17 04:04 04/27/17 02:46 Labs: Last Result Calcium 8.9 mg/dL (8.6-10.8) 04/27/17 02:46 Troponin I 0.00 ng/mL (0-0.03) 04/26/17 14:09 Triglycerides 330 mg/dL (< 150) H 04/27/17 02:46 Stool Occult Blood Positive (Negative) A 04/26/17 14:36 Entire Visit Hgb 13.3 g/dL (12.9-16.9) 04/28/17 04:04 Hct 39.5 % (37.5-50.1) 04/28/17 04:04 PT 11.7 Seconds (9.4-12.1) 04/27/17 02:46 Total Bilirubin 0.5 mg/dL (0.2-1.2) 04/27/17 02:46 AST 17 Units/L (5-34) 04/27/17 02:46 ALT 39 Units/L (0-55) 04/27/17 02:46 Lipase 71 Units/L (8-78) 04/26/17 14:09 - ABG ABG results: PT/INR, D-dimer PT 11.7 Seconds (9.4-12.1) 04/27/17 02:46 Consult Discharge Plan - Plan Referrals: Ambreen Berger, LOADER TECHNICIAN [Primary Care Provider] - <Dave Muse - Last Filed: 04/28/17 18:34> Date of Encounter: 04/28/17 Time of Encounter: 17:30 - Time Spent With Patient Total time spent is greater than 50% in coordination of care (as documented) at patient's floor/unit and/or counseling patient: GI History of Present Illness - Data of Consult Requesting Physician: Roselyn Doty MD - Consult Narrative History of present illness: Mr. Wood is a 41 year old male - Constitutional Vitals: Temp Pulse Resp BP Pulse Ox 98.0 F 88 16 160/96 99 04/28/17 17:01 04/28/17 18:15 04/28/17 18:15 04/28/17 18:15 04/28/17 18:15 Results - Labs CBC & Chem 7: 04/28/17 04:04 04/27/17 02:46 Labs: Last Result Calcium 8.9 mg/dL (8.6-10.8) 04/27/17 02:46 Troponin I 0.00 ng/mL (0-0.03) 04/26/17 14:09 Triglycerides 330 mg/dL (< 150) H 04/27/17 02:46 Stool Occult Blood Positive (Negative) A 04/26/17 14:36 Entire Visit Hgb 13.3 g/dL (12.9-16.9) 04/28/17 04:04 Hct 39.5 % (37.5-50.1) 04/28/17 04:04 PT 11.7 Seconds (9.4-12.1) 04/27/17 02:46 Total Bilirubin 0.5 mg/dL (0.2-1.2) 04/27/17 02:46 AST 17 Units/L (5-34) 04/27/17 02:46 ALT 39 Units/L (0-55) 04/27/17 02:46 Lipase 71 Units/L (8-78) 04/26/17 14:09 - ABG ABG results: PT/INR, D-dimer PT 11.7 Seconds (9.4-12.1) 04/27/17 02:46 - Attending Attestation I examined this patient and my medical decision-making was reviewed with the Resident Physician. I agree with the documented findings, disposition and treatment plan as described except to the extent set forth below.
[2017-04-28] MEDS: *HR* Morphine 2 MG/ML SYRINGE IVP PRN ×2 (11:09→18:47)
[2017-04-28] MEDS ORDERED: Ipratropium/Albuterol Neb 3 ML IH PRN (11:21)
--- NOTE | 2017-04-28 13:27 | Internal Med Progress Note ---
Date of Encounter: 04/28/17 Time of Encounter: 13:25 - Assessment and plan (1) GI bleeding Current Visit: Yes Status: Acute Assessment and plan: Evaluated by GI. Recommended upper GI endoscopy today followed by colonoscopy if it is negative. Continue supportive care. Continue to monitor blood counts. If upper GI endoscopy looks good, we will start clear liquids later today. Qualifiers: GI bleed type/associated pathology: anorectal hemorrhage Qualified Code(s) : K62.5 - Hemorrhage of anus and rectum (2) Urinary hesitancy Current Visit: Yes Status: Acute Assessment and plan: Urinary hesitancy and urinary discomfort. Postvoid bladder scan shows 700 mL of urine. Discussed with urology. They will evaluate patient and make further recommendations. (3) Enteritis Current Visit: Yes Status: Acute Assessment and plan: Continue IV antibiotics for now. Most likely viral enteritis. (4) COPD (chronic obstructive pulmonary disease) Current Visit: Yes Status: Chronic Assessment and plan: No acute exacerbation. Continue bronchodilators as needed Qualifiers: COPD type: unspecified COPD Qualified Code(s): J44.9 - Chronic obstructive pulmonary disease, unspecified (5) GERD (gastroesophageal reflux disease) Current Visit: Yes Status: Chronic Assessment and plan: Continue PPI Qualifiers: Esophagitis presence: esophagitis presence not specified Qualified Code(s) : K21.9 - Gastro-esophageal reflux disease without esophagitis (6) HLD (hyperlipidemia) Current Visit: Yes Status: Chronic Assessment and plan: Continue atorvastatin Qualifiers: Hyperlipidemia type: pure hypercholesterolemia Qualified Code(s): E78.00 - Pure hypercholesterolemia, unspecified; E78.0 - Pure hypercholesterolemia (7) HTN (hypertension) Current Visit: Yes Status: Chronic Assessment and plan: Blood pressure is well controlled Qualifiers: Hypertension type: essential hypertension Qualified Code(s): I10 - Essential (primary) hypertension (8) Irritable bowel syndrome (IBS) Current Visit: Yes Status: Chronic Qualifiers: Irritable bowel syndrome type: with constipation Qualified Code(s): K58.1 - Irritable bowel syndrome with constipation (9) Weakness Current Visit: Yes Status: Acute (10) DVT prophylaxis Current Visit: Yes Status: Acute - Subjective Interval history: Patient continues to have trouble passing urine and also complains of rectal pain due to hemorrhoids. Complains of nausea. No new episodes of emesis. Able to pass urine but takes a long time and has a lot of discomfort associated with it. - Constitutional Vitals: Temp Pulse Resp BP Pulse Ox 97.7 F 66 18 109/66 97 04/28/17 12:01 04/28/17 12:01 04/28/17 12:01 04/28/17 12:01 04/28/17 12:01 General appearance: Present: cooperative, A&O X 3, pleasant, obese, answers questions appropriately - Neck Neck exam general surgery: Present: supple, trachea midline. Absent: lymphadenopathy - Respiratory Respiratory exam: Present: CTAB. Absent: accessory muscle use, rales, rhonchi, wheezes - Cardiovascular Cardiovascular exam: Present: RRR, +S1, +S2. Absent: diastolic murmur, gallop, rubs, systolic murmur - GI/Abdominal GI/Abdominal exam: Present: normal bowel sounds, soft, no peritoneal signs. Absent: distended, tenderness - Extremities Exam Extremities exam: Present: warm, radial pulses palpable and symmetrical. Absent : calf tenderness, cyanotic, pedal edema Internal Medicine: Result - Labs CBC & Chem 7: 04/28/17 04:04 04/27/17 02:46 Labs: Short CBC 04/28/17 Range/Units 04:04 Hgb 13.3 (12.9-16.9) g/dL Hct 39.5 (37.5-50.1) % - ABG Interpretation ABG results: PT/INR, D-dimer PT 11.7 Seconds (9.4-12.1) 04/27/17 02:46 Consult Discharge Plan - Plan Referrals: Ambreen Berger, PORTFOLIO ARCHITECT [Primary Care Provider] -
[2017-04-28] MEDS: *HR* HYDROcodone/Acet 10/325 mg TABLET PO PRN ×2 (16:32→20:51)
[2017-04-28] MEDS ORDERED: *HR* Midazolam HCl 5 MG/5 ML VIAL IVP ONE (16:43)
[2017-04-28] MEDS ORDERED: *HR* FentaNYL (PF) 100 MCG/2 ML VIAL ONE (16:44)
--- NOTE | 2017-04-28 17:00 | Event Note ---
Date of Encounter: 04/28/17 Time of Encounter: 16:59 Came to visit patient. He was in GI for a procedure. Will visit tomorrow.
[2017-04-28] MEDS ORDERED: *HR* Promethazine 25 MG/ML VIAL ONE (17:02)
[2017-04-28] MEDS: *HR* Midazolam HCl 5 MG/5 ML VIAL IVP PRN ×2 (18:11→18:13)
[2017-04-28] MEDS: *HR* FentaNYL (PF) 100 MCG/2 ML VIAL IVP PRN ×2 (18:11→18:13)
[2017-04-28] MEDS ORDERED: Tetracaine/Benzocaine/Butamben 200MG/SPRAY (100SPY/BOT) MM ONE (18:13)
[2017-04-28] MEDS ORDERED: SODIUM CHLORIDE/NAHCO3/KCL/PEG 4,000 ML SOLN.RECON PO ONE (18:30)
[2017-04-28] MEDS: Metoprolol XL (24 HR) Succ 25 MG TAB.ER.24H PO SCH (18:47)
[2017-04-28] MEDS: traZODone 50 MG TABLET PO SCH (20:40)
[2017-04-28] MEDS: tiZANidine 4 MG TABLET PO SCH (20:40)
[2017-04-28] MEDS: Budesonide/Formoterol 80/4.5 MDI IH SCH (22:50)
[2017-04-29] MEDS: MetroNIDAZOLE 500 MG/100 ML 500 MG/100 ML BAG IVPB SCH ×3 (02:33→15:24)
[2017-04-29] MEDS: Polyethylene Glycol 3350 255 GM POWDER PO ONE ×2 (02:35→02:36)
[2017-04-29] MEDS: D5% in 0.9% NACL 1,000 ML IVC SCH ×4 (02:47→19:36)
[2017-04-29] MEDS: *HR* HYDROcodone/Acet 10/325 mg TABLET PO PRN ×3 (02:48→20:56)
--- NOTE | 2017-04-29 07:15 | Urology - Consult Note ---
Date of Encounter: 04/29/17 Time of Encounter: 07:13 - Assessment and Plan (1) Incomplete bladder emptying Current Visit: Yes Status: Acute Assessment and plan: 41-year-old man with a history of incomplete bladder emptying and urinary hesitancy. He is currently taking tamsulosin. Yesterday he had a bladder scan for 700 mL. He was able to void afterwards approximate 1200 mL. He says he hasn' t voided over the last 12 hours. He reports some superpubic distention. 1. I recommend obtaining a bladder scan today. If the postvoid residual remains over 700, then I would have the nurse place a coud catheter. He can then follow up as an outpatient for a voiding trial. 2. I will increase his tamsulosin to 0.8 mg daily. 3. We discussed complex urodynamics as an outpatient. I also discussed intermittent catheterization as well as possible surgical intervention such as a TURP. This will be further delineated after the complex urodynamic study. (2) Urinary hesitancy Current Visit: Yes Status: Acute Urology CN:HPI Consult date: 04/29/17 Reason for consult Urology: Other (urinary retention) Requesting physician: Roselyn Doty History of present illness: 41-year-old gentleman was seen in consultation for incomplete bladder emptying. He has been admitted for evaluation of a GI bleed. Yesterday, he had an endoscopy. He reports difficulty urinating. This has been going on for some time. He has to strain. The straining has led to hemorrhoid issues. He otherwise feels like he can't urinate well. He has slowing of his stream. He does take tamsulosin. He denies any dysuria. He does report chronic testicular pain. He has some chronic suprapubic discomfort. He mentions a history of fibromyalgia. He says his flow seems slow to him. He has sensations of incomplete emptying. He denies any urgency or urge incontinence. Past Med Surg Social Fam HX - Past Medical History Medical history: COPD, fibromyalgia, GERD, hyperlipidemia, hypertension, other ( IBS) Psychiatric history: anxiety, depression - Social History Smoking Status: Never smoker Smokeless Tobacco Status: No Alcohol use: none Drug use: none - Family History Mother Race: Family Member Ethnicity: Non- Living Status: Age at : 65 Cause of : Hodgkins lymphoma Hx Family Cardiac Disorders: Yes (HD) Hx Family Cancer: Yes (Hodgkins lymphoma, Breast cancer) Father Race: Family Member Ethnicity: Non- Living Status: Age at : 73 Hx Family Respiratory Disorders: Yes (Fungus on lungs, Lobectomy) Hx Family Endocrine Disorder: Yes (Addisons disease) Brother Race: Family Member Ethnicity: Non- Living Status: Age at : 54 Cause of : Colon cancer Hx Family Cancer: Yes (Colon Cancer) Sister Race: Family Member Ethnicity: Non- Living Status: Still Living Hx Family Cancer: Yes (Female cancer, Breast cancer) Medications and Allergies Albuterol Sulfate [Proair Hfa] 2 puff IH Q4-6H PRN 04/26/17 [History] Atorvastatin Calcium [Lipitor] 80 mg PO HS 04/26/17 [History] Cholecalciferol (D-3) [Vitamin D] 5,000 unit PO DAILY 04/26/17 [History] Esomeprazole Magnesium [Nexium] 40 mg PO QAM 04/26/17 [History] Fexofenadine HCl 180 mg PO DAILY 04/26/17 [History] Fluticasone/Salmeterol [Advair 250-50 Diskus] 1 puff IH BID 04/26/17 [History] Gabapentin [Neurontin] 300 mg PO BID 04/26/17 [History] HYDROcodone/Acet 10/325 mg [[place] 10-325 mg] 1 tab PO BID PRN 04/26/17 [History] Ipratropium [place] 2 spr NS BID 04/26/17 [History] Lisinopril [Zestril] 10 mg PO DAILY 04/26/17 [History] Metoprolol Succinate 25 mg PO DAILY 04/26/17 [History] Milnacipran HCl [Savella] 50 mg PO DAILY 04/26/17 [History] Montelukast [Singulair] 10 mg PO DAILY 04/26/17 [History] [place]-3/Dha/Epa/Fish Oil [Fish Oil 1,000 mg Softgel] 1 cap PO DAILY 04/26/17 [ History] Pantoprazole Sodium [Protonix] 40 mg PO DAILY 04/26/17 [History] Tamsulosin HCl [Flomax] 0.4 mg PO DAILY 04/26/17 [History] Tizanidine HCl [Zanaflex] 8 mg PO HS 04/26/17 [History] Topiramate [Topamax] 200 mg PO BID 04/26/17 [History] Trazodone HCl 300 mg PO HS 04/26/17 [History] carBAMazepine [Tegretol] 200 mg PO BID 04/26/17 [History] diazePAM [Valium] 2 mg PO BID 04/26/17 [History] Allergies duloxetine [From Cymbalta] Adverse Reaction (Verified 04/26/17 15:55) See Comments ALTERED MENTAL STATUS Review of Systems - Constitutional no chills, no fever(s) - EENT Nose, mouth and throat: no dizziness - Cardiovascular no chest pain - Respiratory no dyspnea - Gastrointestinal no nausea, no vomiting - Genitourinary difficulty urinating, testicular pain, urinary hesitancy, no flank pain, no hematuria - Musculoskeletal no back pain - Integumentary no erythema, no rash - Neurological no weakness - Psychiatric no suicidal ideation - Hematologic/Lymphatic no easy bleeding - Allergic/Immunologic no wheezing Exam Initial Vital Signs Temp Pulse Resp BP Pulse Ox 97.6 F 78 16 133/72 100 04/26/17 13:36 04/26/17 13:36 04/26/17 13:36 04/26/17 13:36 04/26/17 13:36 - General physical appearance Present: well developed, well nourished, no distress - Eyes Absent: icteric - ENT Present: normal nares - Neck Present: trachea midline - Respiratory Present: normal respiratory effort - Cardiovascular Cardiovascular exam IM: RRR - Abdomen Abdomen: Present: soft (not distended) - Genitourinary normal penis with no external lesions, testicles present Urology Results - Labs 04/28/17 04:04 04/27/17 02:46 Abnormal lab results Chloride 115 mEq/L (98-109) H 04/27/17 02:46 Albumin 3.3 g/dL (3.5-5.0) L 04/27/17 02:46 Triglycerides 330 mg/dL (< 150) H 04/27/17 02:46 Cholesterol 211 mg/dL (< 200) H 04/27/17 02:46 LDL Cholesterol, Calc 121 mg/dL (0-99) H 04/27/17 02:46 VLDL Cholesterol, Calc 66 mg/dL (< 31) H 04/27/17 02:46 HDL Cholesterol 24 mg/dL (40-59) L 04/27/17 02:46 Cholesterol/HDL Ratio 8.8 (0-4.9) H 04/27/17 02:46 Stool Occult Blood Positive (Negative) A 04/26/17 14:36 All other labs normal. - Imaging CT scan - abdomen: report reviewed, image reviewed CT scan - pelvis: report reviewed, image reviewed Consult Discharge Plan - Plan Referrals: Ambreen Berger, EASEMENT MAN [Primary Care Provider] -
[2017-04-29] MEDS: Topiramate 100 MG TABLET PO SCH ×2 (07:59→20:57)
[2017-04-29] MEDS: diazePAM 2 MG TABLET PO SCH ×2 (07:59→20:56)
[2017-04-29] MEDS: Cholecalciferol (D-3) 1,000 UNIT TABLET PO SCH (07:59)
[2017-04-29] MEDS: Pantoprazole 40 MG VIAL IVP SCH (08:00)
[2017-04-29] MEDS: Gabapentin 300 MG CAPSULE PO SCH ×2 (08:00→20:57)
[2017-04-29] MEDS: Loratadine 10 MG TABLET PO SCH (08:00)
[2017-04-29] MEDS: carBAMazepine 200 MG TABLET PO SCH ×2 (08:00→20:56)
[2017-04-29] MEDS: Budesonide/Formoterol 80/4.5 MDI IH SCH ×2 (08:16→20:43)
[2017-04-29] MEDS ORDERED: *HR* Propofol 500 MG/50 ML BOTTLE IVC ONE (09:06)
[2017-04-29] MEDS ORDERED: EPHEDrine 50 MG/ML VIAL IVP ONE (09:06)
[2017-04-29] MEDS ORDERED: Lidocaine -MPF 2% 5 ML VIAL INFILT ONE (09:06)
[2017-04-29 09:28] LABS: Basophils % 0.2 %; Eosinophils # 0.4 K/mcL (0.0-0.6); Eosinophils % 7.7 %; Hematocrit 42.9 % (37.5-50.1); Hemoglobin 14.2 g/dL (12.9-16.9); Immature Granulocytes % 0.2 % (0-4); Lymphocytes # 1.8 K/mcL (0.6-4.6); Mean Corpuscular HGB Conc 33.1 g/dL (31.6-35.5); Mean Corpuscular Hemoglobin 30.5 pg (28.0-33.3); Mean Corpuscular Volume 92.3 fL (83.0-100.0); Mean Platelet Volume 10.1 fL (9.4-12.4); Monocytes # 0.4 K/mcL (0.0-1.3); Monocytes % 7.4 %; Neutrophils # 2.7 K/mcL (1.6-8.9); Platelet Count 134 K/mcL (140-400); Red Blood Count 4.65 M/mcL (4.19-5.50); Red Cell Distribution Width 13.8 % (11.5-14.5); Segmented Neutrophils % 50.5 %
[2017-04-29 09:40] LABS: BUN/Creatinine Ratio 12 (6-26); Blood Urea Nitrogen 11 mg/dL (8-26); Calcium 8.9 mg/dL (8.6-10.8); Carbon Dioxide 19 mEq/L (19-29); Chloride 112 mEq/L (98-109); Glucose 73 mg/dL (70-99); Magnesium 1.8 mg/dL (1.6-2.6); Osmolality,Calculated 290 (280-300); Phosphorous 3.7 mg/dL (2.3-4.7); Potassium 3.6 mEq/L (3.5-4.5); Sodium 141 mEq/L (136-145); eGFR For African Americans > 60 (> 60); eGFR For Non-African Americans > 60 (> 60)
--- NOTE | 2017-04-29 12:31 | Internal Med Progress Note ---
Date of Encounter: 04/29/17 Time of Encounter: 12:27 - Assessment and plan (1) GI bleeding Current Visit: Yes Status: Acute Assessment and plan: GI evaluation appreciated no recurrent bleeding episodes reported s/p EGD (04/28/17): normal exam scheduled for colonoscopy later today will continue to monitor H&H and transfuse as needed Qualifiers: GI bleed type/associated pathology: anorectal hemorrhage Qualified Code(s) : K62.5 - Hemorrhage of anus and rectum (2) Enteritis Current Visit: Yes Status: Acute Assessment and plan: Continue IV antibiotics for now. Most likely viral enteritis. (3) DVT prophylaxis Current Visit: Yes Status: Acute Assessment and plan: With SCDs (4) GERD (gastroesophageal reflux disease) Current Visit: Yes Status: Chronic Assessment and plan: Continue PPI Qualifiers: Esophagitis presence: esophagitis presence not specified Qualified Code(s) : K21.9 - Gastro-esophageal reflux disease without esophagitis (5) HTN (hypertension) Current Visit: Yes Status: Chronic Assessment and plan: BP within acceptable range continue home meds will closely monitor BP Qualifiers: Hypertension type: essential hypertension Qualified Code(s): I10 - Essential (primary) hypertension (6) HLD (hyperlipidemia) Current Visit: Yes Status: Chronic Assessment and plan: Continue atorvastatin Qualifiers: Hyperlipidemia type: pure hypercholesterolemia Qualified Code(s): E78.00 - Pure hypercholesterolemia, unspecified; E78.0 - Pure hypercholesterolemia (7) COPD (chronic obstructive pulmonary disease) Current Visit: Yes Status: Chronic Assessment and plan: No acute exacerbation. Continue bronchodilators as needed Qualifiers: COPD type: unspecified COPD Qualified Code(s): J44.9 - Chronic obstructive pulmonary disease, unspecified (8) Weakness Current Visit: Yes Status: Acute Assessment and plan: PT evaluation noted, SNF recommended psychiatric social worker consultation requested for placement (9) Incomplete bladder emptying Current Visit: Yes Status: Acute Assessment and plan: urology input appreciated ramos cath in place likely to be discharged with ramos increased Tamsulosin to 0.8mg PO qd by urology - Subjective Interval history: Pt seen and examined with family present at bedside. Pt scheduled for colonoscopy later today. Denies any acute blood loss since hospitalization. Reported of not being able to void due to which a ramos cath was inserted this morning. No overnight issues reported. - Constitutional Vitals: Temp Pulse Resp BP Pulse Ox 97.3 F L 61 16 96/62 96 04/29/17 10:49 04/29/17 10:49 04/29/17 10:49 04/29/17 10:49 04/29/17 10:49 General appearance: Present: cooperative, A&O X 3, pleasant, obese, answers questions appropriately - Head Head exam: Present: atraumatic, normocephalic - Eye Eye exam: Present: conjuntiva pink, sclera anicteric - Respiratory Respiratory exam: Present: CTAB. Absent: respiratory distress, wheezes - Cardiovascular Cardiovascular exam: Present: RRR, +S1, +S2. Absent: diastolic murmur, gallop, rubs, systolic murmur - GI/Abdominal GI/Abdominal exam: Present: distended (obese), normal bowel sounds. Absent: tenderness - Extremities Exam Extremities exam: Present: warm, radial pulses palpable and symmetrical. Absent : calf tenderness, pedal edema - Neurological Exam Neurological exam: Present: alert, oriented X3 - Psychiatric Psychiatric exam: Present: normal affect, normal mood Internal Medicine: Result - Labs CBC & Chem 7: 04/29/17 09:04 04/29/17 09:04 Labs: Short CBC 04/29/17 Range/Units 09:04 WBC 5.3 (4.3-11.1) K/mcL Hgb 14.2 (12.9-16.9) g/dL Hct 42.9 (37.5-50.1) % Plt Count 134 L (140-400) K/mcL Neutrophils # 2.7 (1.6-8.9) K/mcL BMP 04/29/17 09:04 Sodium 141 Potassium 3.6 Chloride 112 H Carbon Dioxide 19 BUN 11 Creatinine 0.93 Glucose 73 Calcium 8.9 - ABG Interpretation ABG results: PT/INR, D-dimer PT 11.7 Seconds (9.4-12.1) 04/27/17 02:46 - VTE Documentation of Mechanical Device: Intermittent pneumatic compression device Consult Discharge Plan - Plan Referrals: Ambreen Berger, GAS SYSTEM OPERATOR [Primary Care Provider] -
--- NOTE | 2017-04-29 13:48 | Anesthesia Evaluation PreOp ---
<Sheryl Salmon - Last Filed: 04/29/17 13:45> Date of Encounter: 04/29/17 - Past History Planned Operation: colonoscopy Cardiac History: HTN, Hyperlipidemia Pulmonary History: COPD Other Medical History: Bleeding (GI bleed; EGD yesterday), GERD, Other ( enteritis, IBS, anxiety, depression) Alcohol Use: none Drug use: none Medications and Allergies Albuterol Sulfate [Proair Hfa] 2 puff IH Q4-6H PRN 04/26/17 [History] Atorvastatin Calcium [Lipitor] 80 mg PO HS 04/26/17 [History] Cholecalciferol (D-3) [Vitamin D] 5,000 unit PO DAILY 04/26/17 [History] Esomeprazole Magnesium [Nexium] 40 mg PO QAM 04/26/17 [History] Fexofenadine HCl 180 mg PO DAILY 04/26/17 [History] Fluticasone/Salmeterol [Advair 250-50 Diskus] 1 puff IH BID 04/26/17 [History] Gabapentin [Neurontin] 300 mg PO BID 04/26/17 [History] HYDROcodone/Acet 10/325 mg [[place] 10-325 mg] 1 tab PO BID PRN 04/26/17 [History] Ipratropium [place] 2 spr NS BID 04/26/17 [History] Lisinopril [Zestril] 10 mg PO DAILY 04/26/17 [History] Metoprolol Succinate 25 mg PO DAILY 04/26/17 [History] Milnacipran HCl [[place]] 50 mg PO DAILY 04/26/17 [History] Montelukast [Singulair] 10 mg PO DAILY 04/26/17 [History] [place]-3/Dha/Epa/Fish Oil [Fish Oil 1,000 mg Softgel] 1 cap PO DAILY 04/26/17 [ History] Pantoprazole Sodium [Protonix] 40 mg PO DAILY 04/26/17 [History] Tamsulosin HCl [Flomax] 0.4 mg PO DAILY 04/26/17 [History] Tizanidine HCl [Zanaflex] 8 mg PO HS 04/26/17 [History] Topiramate [Topamax] 200 mg PO BID 04/26/17 [History] Trazodone HCl 300 mg PO HS 04/26/17 [History] carBAMazepine [Tegretol] 200 mg PO BID 04/26/17 [History] diazePAM [Valium] 2 mg PO BID 04/26/17 [History] Allergies duloxetine [From Cymbalta] Adverse Reaction (Verified 04/26/17 15:55) See Comments ALTERED MENTAL STATUS - Meds/Allergy Pre-op Review Medications Reviewed: Yes Allergies Reviewed: Yes Beta Blockers on Current Med List: Yes (metoprolol) If Beta Blockers taken, Date/Time (Last Dose taken): 04-28-17 18:47 Anesthesia Results - Labs 04/29/17 09:04 04/29/17 09:04 - Imaging EKG: report reviewed, image reviewed (SINUS RHYTHM NONSPECIFIC ST ABNORMALITIES - CONSIDER EARLY REPOLARIZATION) Anesthesia Exam Last Vital Signs Temp 97.3 F L 04/29/17 10:49 Pulse 61 04/29/17 10:49 Resp 16 04/29/17 10:49 BP 96/62 04/29/17 10:49 Pulse Ox 96 04/29/17 10:49 Weight: 96 kg <Christiano Glass - Last Filed: 04/29/17 13:59> Date of Encounter: 04/29/17 Time of Encounter: 13:54 - Past History Pulmonary History: Other (vocal cord dysfunction, therapy years ago worse with reflux.) 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 Other Medical History: Other (enteritis, IBS, anxiety, depression, chronic back pain) Anesthesia Results - Labs 04/29/17 09:04 04/29/17 09:04 Anesthesia Exam - HEENT Pupil (Motor): Pupils equal Mallampati: II Teeth: Edentulous Oral Opening: Greater than 3 - STICKER MACHINE OPERATOR LOC: Oriented STICKER MACHINE OPERATOR Motor: Normal RUE, Normal LUE, Normal RLE, Normal LLE, Normal Face STICKER MACHINE OPERATOR Sensory: Normal: RUE, LUE, Face, Deficit: RLE (occ tingling, numbness), LLE (occ tingling, numbness) - Cardiac Rhythm: Regular Murmur: None - Pulmonary Breath Sounds: bilateral Clear Respiratory Effort: Symmetrical Anesthesia Assess/Plan ASA Score: 3 Modified [place] Scale for Level of Consciousness: Cooperative, oriented, and tranquil Anesthetic Plan: MAC Monitoring Plan: Standard Monitors
[2017-04-29] MEDS ORDERED: 0.9 % Sodium Chloride 500 ML IVC SCH (14:00)
--- NOTE | 2017-04-29 15:02 | Anesthesia Evaluation Post Op ---
Date of Encounter: 04/29/17 Time of Encounter: 15:01 - Vital Signs Vital Signs: vss - Lungs Lungs: Clear Ascult./Percussion - Airway Airway: Non-obstructed - Cardiovascular Baseline Rhythm - Mental Status Mental Status: Asleep with brisk response to light stimulation - Pain Pain Scale used: [place] (Faces) - Nausea Vomiting Nausea Vomiting: Not Present - Discharge PostOp Status: Transfer Patient to floor
[2017-04-29] MEDS: Metoprolol XL (24 HR) Succ 25 MG TAB.ER.24H PO SCH (18:26)
[2017-04-29] MEDS: tiZANidine 4 MG TABLET PO SCH (20:56)
[2017-04-29] MEDS: traZODone 50 MG TABLET PO SCH (20:56)
[2017-04-30] MEDS: MetroNIDAZOLE 500 MG/100 ML 500 MG/100 ML BAG IVPB SCH ×2 (00:25→08:30)
[2017-04-30 05:20] LABS: Basophils % 0.2 %; Eosinophils # 0.4 K/mcL (0.0-0.6); Eosinophils % 5.5 %; Hematocrit 38.6 % (37.5-50.1); Hemoglobin 13.1 g/dL (12.9-16.9); Immature Granulocytes % 0.2 % (0-4); Lymphocytes # 2.2 K/mcL (0.6-4.6); Lymphocytes % 32.7 %; Mean Corpuscular HGB Conc 33.9 g/dL (31.6-35.5); Mean Corpuscular Hemoglobin 30.8 pg (28.0-33.3); Mean Corpuscular Volume 90.8 fL (83.0-100.0); Mean Platelet Volume 10.8 fL (9.4-12.4); Monocytes # 0.4 K/mcL (0.0-1.3); Monocytes % 5.8 %; Neutrophils # 3.7 K/mcL (1.6-8.9); Platelet Count 127 K/mcL (140-400); Red Blood Count 4.25 M/mcL (4.19-5.50); Red Cell Distribution Width 13.4 % (11.5-14.5); Segmented Neutrophils % 55.6 %
[2017-04-30 05:36] LABS: BUN/Creatinine Ratio 10 (6-26); Blood Urea Nitrogen 8 mg/dL (8-26); Calcium 8.5 mg/dL (8.6-10.8); Carbon Dioxide 20 mEq/L (19-29); Chloride 114 mEq/L (98-109); Glucose 98 mg/dL (70-99); Magnesium 1.6 mg/dL (1.6-2.6); Osmolality,Calculated 290 (280-300); Potassium 3.3 mEq/L (3.5-4.5); Sodium 141 mEq/L (136-145); eGFR For African Americans > 60 (> 60); eGFR For Non-African Americans > 60 (> 60)
[2017-04-30] MEDS ORDERED: 0.9 % Sodium Chloride 250 ML IVC ONE (07:42)
[2017-04-30] MEDS ORDERED: Metoprolol XL (24 HR) Succ 25 MG TAB.ER.24H PO SCH (07:43)
[2017-04-30] MEDS: D5% in 0.9% NACL 1,000 ML IVC SCH (08:03)
[2017-04-30] MEDS: Budesonide/Formoterol 80/4.5 MDI IH SCH ×2 (08:27→20:19)
[2017-04-30] MEDS: Topiramate 100 MG TABLET PO SCH ×2 (10:10→21:20)
[2017-04-30] MEDS: carBAMazepine 200 MG TABLET PO SCH ×2 (10:11→21:19)
[2017-04-30] MEDS: Cholecalciferol (D-3) 1,000 UNIT TABLET PO SCH (10:11)
[2017-04-30] MEDS: Gabapentin 300 MG CAPSULE PO SCH ×2 (10:11→21:20)
[2017-04-30] MEDS: *HR* HYDROcodone/Acet 10/325 mg TABLET PO PRN ×2 (10:11→18:21)
[2017-04-30] MEDS: Pantoprazole 40 MG VIAL IVP SCH (10:12)
[2017-04-30] MEDS: diazePAM 2 MG TABLET PO SCH ×2 (10:12→21:19)
[2017-04-30] MEDS: Loratadine 10 MG TABLET PO SCH (10:27)
--- NOTE | 2017-04-30 10:52 | Discharge Summary ---
Date of Encounter: 04/30/17 Time of Encounter: 10:50 - Discharge Diagnosis (1) GI bleeding Priority: Primary Status: Resolved Qualifiers: GI bleed type/associated pathology: anorectal hemorrhage Qualified Code(s) : K62.5 - Hemorrhage of anus and rectum (2) Enteritis Priority: Primary Status: Acute (3) DVT prophylaxis Priority: Secondary Status: Acute (4) GERD (gastroesophageal reflux disease) Priority: Secondary Status: Chronic Qualifiers: Esophagitis presence: esophagitis presence not specified Qualified Code(s) : K21.9 - Gastro-esophageal reflux disease without esophagitis (5) HTN (hypertension) Priority: Secondary Status: Chronic Qualifiers: Hypertension type: essential hypertension Qualified Code(s): I10 - Essential (primary) hypertension (6) HLD (hyperlipidemia) Priority: Secondary Status: Chronic Qualifiers: Hyperlipidemia type: pure hypercholesterolemia Qualified Code(s): E78.00 - Pure hypercholesterolemia, unspecified; E78.0 - Pure hypercholesterolemia (7) COPD (chronic obstructive pulmonary disease) Priority: Secondary Status: Chronic Qualifiers: COPD type: unspecified COPD Qualified Code(s): J44.9 - Chronic obstructive pulmonary disease, unspecified (8) Weakness Priority: Secondary Status: Acute (9) Incomplete bladder emptying Priority: Secondary Status: Acute - Discharge Medications Prescriptions: diazePAM [Valium] 2 mg PO BID #10 Gabapentin [Neurontin] 300 mg PO BID #10 HYDROcodone/Acet 10/325 mg [[place] 10-325 mg] 1 tab PO BID PRN #20 PRN Reason: Pain Home Medications: Albuterol Sulfate [Proair Hfa] 2 puff IH Q4-6H PRN 04/26/17 [History] Atorvastatin Calcium [Lipitor] 80 mg PO HS 04/26/17 [History] Cholecalciferol (D-3) [Vitamin D] 5,000 unit PO DAILY 04/26/17 [History] Esomeprazole Magnesium [Nexium] 40 mg PO QAM 04/26/17 [History] Fexofenadine HCl 180 mg PO DAILY 04/26/17 [History] Fluticasone/Salmeterol [Advair 250-50 Diskus] 1 puff IH BID 04/26/17 [History] Gabapentin [Neurontin] 300 mg PO BID 04/26/17 [History] Ipratropium [place] 2 spr NS BID 04/26/17 [History] Lisinopril [Zestril] 10 mg PO DAILY 04/26/17 [History] Metoprolol Succinate 25 mg PO DAILY 04/26/17 [History] Milnacipran HCl [Savella] 50 mg PO DAILY 04/26/17 [History] Montelukast [Singulair] 10 mg PO DAILY 04/26/17 [History] [place]-3/Dha/Epa/Fish Oil [Fish Oil 1,000 mg Softgel] 1 cap PO DAILY 04/26/17 [ History] Pantoprazole Sodium [Protonix] 40 mg PO DAILY 04/26/17 [History] Tamsulosin HCl [Flomax] 0.4 mg PO DAILY 04/26/17 [History] Tizanidine HCl [Zanaflex] 8 mg PO HS 04/26/17 [History] Topiramate [Topamax] 200 mg PO BID 04/26/17 [History] Trazodone HCl 300 mg PO HS 04/26/17 [History] carBAMazepine [Tegretol] 200 mg PO BID 04/26/17 [History] Ciprofloxacin [Cipro] 500 mg PO BID tab 04/30/17 [Rx] Gabapentin [Neurontin] 300 mg PO BID #10 04/30/17 [Rx] HYDROcodone/Acet 10/325 mg [[place] 10-325 mg] 1 tab PO BID PRN #20 04/30/17 [Rx] diazePAM [Valium] 2 mg PO BID #10 04/30/17 [Rx] metroNIDAZOLE [Flagyl] 500 mg PO TID tab 04/30/17 [Rx] Allergies/Adverse Reactions: Allergies duloxetine [From Cymbalta] Adverse Reaction (Verified 04/26/17 15:55) See Comments ALTERED MENTAL STATUS Date of admission: 04/26/17 18:38 Primary care physician: Ambreen Berger CNP Consults: 04/26/17 18:49 Consult to Gastroenterology [CONS] Routine Consulting Provider: Gastroenterology [place] Reason for Consult: Patient has two day history of black stools, fecal occult is positive, and he has had bright blood in his underwear. Hx of chronic IBS and constipation. Last colonoscopy was >5 years ago. Call Completed: Yes 04/28/17 09:39 Consult to Physical Therapy [CONS] Routine Comment: Evaluate, develop and implement POC Reason for Consult: discharge planning OT [Consult to Occupational Therapy] [CONS] Routine Comment: Evaluate, develop and implement POC Reason for Consult: discharge planning 04/28/17 10:04 Consult to Urology [CONS] Routine Consulting Provider: [place] Whelan Reason for Consult: Difficult urination/ hesitancy Call Completed: Yes 04/29/17 12:32 Consult to Application Release Manager [CONS] Stat Reason for SW Consult: ecf placement ` Discharging clinician: Leah Mendieta Anticipated date of discharge: 04/30/17 - Patient Status Disposition: Transfer SNF Condition: Good Functional capacity at discharge: uses cane/walker Overall status at discharge: patient is back to baseline - Discharge Instructions Follow Up With: Ambreen Berger CNP [Primary Care Provider] - Additional Instructions: Please follow up with your primary care physician and urologist within five days after your discharge from the hospital. Please continue oral antibiotics for a total of 5 days. Last day of antibiotics : 05/05/17 You will be discharged with ramos catheter. Please follow up with urology after your discharge from the hospital. Please resume all your home medications after your discharge from the hospital. Please closely monitor your blood pressure at home. Hold your blood pressure medications if your systolic blood pressure is less than 120. - Diet and Activity Activity: as per physical therapy, wear oxygen at all times, wear oxygen at night Diet: low salt diet Hospital course: Mr. Wood is a 41 year old male with PMH of COPD on LTOT, fibromyalgia, GERD , HLD, HTN, IBS admitted for lower GI bleeding. He underwent EGD and colonoscopy which was negative for any acute bleeding. He also reported of having urinary discomfort and was unable to void due to which urology was consulted. Due to incomplete bladder emptying, ramos cath was placed and his home dose of Tamsulosin was increased by urology. Pt was noted to have severe hypotension after increase in tamsulosin, requiring fluid boluses. His tamsulosin dose was decreased back to 0.4mg PO qd and parameters were set on all of his other antihypertensive medications. He was evaluated by physical therapy and ECF was recommended. Pt will be discharged to [facility] with ramos cath. He was also started on empiric IV abx for enteritis during this hospitalization. He is to continue oral abx for a total of ten days. Pt is hemodynamically stable for discharge to ECF pending bed availability. Pt demonstrates understanding of his diagnosis and agrees with the discharge care and plan. - Time Spent with Patient Total time spent providing and/or coordinating discharge services: Greater than 30 minutes - Constitutional Vitals: Temp Pulse Resp BP Pulse Ox 98.0 F 68 16 120/73 98 04/30/17 10:36 04/30/17 10:36 04/30/17 10:36 04/30/17 10:36 04/30/17 10:36 General appearance: Present: cooperative, A&O X 3, pleasant, obese, answers questions appropriately - Head Head exam: Present: atraumatic, normocephalic - Eye Eye exam: Present: conjuntiva pink, sclera anicteric - Respiratory Respiratory exam: Present: CTAB. Absent: respiratory distress, wheezes - Cardiovascular Cardiovascular exam: Present: RRR, +S1, +S2. Absent: diastolic murmur, gallop, rubs, systolic murmur - GI/Abdominal GI/Abdominal exam: Present: distended (obese), normal bowel sounds, soft, tenderness (LLQ tenderness to palpation ) - Extremities Exam Extremities exam: Present: warm, radial pulses palpable and symmetrical. Absent : calf tenderness, pedal edema - Neurological Exam Neurological exam: Present: alert, oriented X3 - Psychiatric Psychiatric exam: Present: normal affect, normal mood - VTE Documentation of Mechanical Device: Intermittent pneumatic compression device
--- NOTE | 2017-04-30 14:29 | Physician Discharge Referral ---
ExtendedCare Referral Info Transfer To: [facility] Provider in Charge after Transfer: PCP - Diagnosis (1) GI bleeding Priority: Primary Status: Resolved (2) Enteritis Priority: Primary Status: Acute (3) DVT prophylaxis Priority: Secondary Status: Acute (4) GERD (gastroesophageal reflux disease) Priority: Secondary Status: Chronic (5) HTN (hypertension) Priority: Secondary Status: Chronic (6) HLD (hyperlipidemia) Priority: Secondary Status: Chronic (7) COPD (chronic obstructive pulmonary disease) Priority: Secondary Status: Chronic (8) Weakness Priority: Secondary Status: Acute (9) Incomplete bladder emptying Priority: Secondary Status: Acute - Transfer Medications Prescriptions: diazePAM [Valium] 2 mg PO BID #10 Gabapentin [Neurontin] 300 mg PO BID #10 HYDROcodone/Acet 10/325 mg [[place] 10-325 mg] 1 tab PO BID PRN #20 PRN Reason: Pain Home Medications: Albuterol Sulfate [Proair Hfa] 2 puff IH Q4-6H PRN 04/26/17 [History] Atorvastatin Calcium [Lipitor] 80 mg PO HS 04/26/17 [History] Cholecalciferol (D-3) [Vitamin D] 5,000 unit PO DAILY 04/26/17 [History] Esomeprazole Magnesium [Nexium] 40 mg PO QAM 04/26/17 [History] Fexofenadine HCl 180 mg PO DAILY 04/26/17 [History] Fluticasone/Salmeterol [Advair 250-50 Diskus] 1 puff IH BID 04/26/17 [History] Gabapentin [Neurontin] 300 mg PO BID 04/26/17 [History] Ipratropium [place] 2 spr NS BID 04/26/17 [History] Lisinopril [Zestril] 10 mg PO DAILY 04/26/17 [History] Metoprolol Succinate 25 mg PO DAILY 04/26/17 [History] Milnacipran HCl [[place]] 50 mg PO DAILY 04/26/17 [History] Montelukast [Singulair] 10 mg PO DAILY 04/26/17 [History] [place]-3/Dha/Epa/Fish Oil [Fish Oil 1,000 mg Softgel] 1 cap PO DAILY 04/26/17 [ History] Pantoprazole Sodium [Protonix] 40 mg PO DAILY 04/26/17 [History] Tamsulosin HCl [Flomax] 0.4 mg PO DAILY 04/26/17 [History] Tizanidine HCl [Zanaflex] 8 mg PO HS 04/26/17 [History] Topiramate [Topamax] 200 mg PO BID 04/26/17 [History] Trazodone HCl 300 mg PO HS 04/26/17 [History] carBAMazepine [Tegretol] 200 mg PO BID 04/26/17 [History] Ciprofloxacin [Cipro] 500 mg PO BID tab 04/30/17 [Rx] Gabapentin [Neurontin] 300 mg PO BID #10 04/30/17 [Rx] HYDROcodone/Acet 10/325 mg [[place] 10-325 mg] 1 tab PO BID PRN #20 04/30/17 [Rx] diazePAM [Valium] 2 mg PO BID #10 04/30/17 [Rx] metroNIDAZOLE [Flagyl] 500 mg PO TID tab 04/30/17 [Rx] Allergies/Adverse Reactions: Allergies duloxetine [From Cymbalta] Adverse Reaction (Verified 04/26/17 15:55) See Comments ALTERED MENTAL STATUS - Respiratory Orders Smoking Cessation: Smoking cessation has been advised. For more information, call the [place] Tobacco Quit Line at 2-920-ZZJS-NOW. - Rehabiliation Orders Other: Please follow up with your primary care physician and urologist within five days after your discharge from the hospital. Please continue oral antibiotics for a total of 5 days. Last day of antibiotics : 05/05/17 You will be discharged with ramos catheter. Please follow up with urology after your discharge from the hospital. Please resume all your home medications after your discharge from the hospital. Please closely monitor your blood pressure at home. Hold your blood pressure medications if your systolic blood pressure is less than 120. CERTIFICATION: I certify that the transfer of the above named patient to an Extended Care Facility is necessary for the continuing treatment of the diagnosis listed. The above information is true and accurate reflection of patient's current condition. Confidential - Redisclosure prohibited without a patient's written consent.
[2017-04-30] MEDS: metroNIDAZOLE 500 MG TABLET PO SCH ×2 (15:21→21:21)
[2017-04-30] MEDS: Sucralfate 1 GM TABLET PO SCH ×2 (17:11→21:21)
[2017-04-30] MEDS: tiZANidine 4 MG TABLET PO SCH (21:18)
[2017-04-30] MEDS: traZODone 50 MG TABLET PO SCH (21:20)
[2017-05-01] MEDS: Budesonide/Formoterol 80/4.5 MDI IH SCH (07:54)
[2017-05-01] MEDS: Cholecalciferol (D-3) 1,000 UNIT TABLET PO SCH (08:58)
[2017-05-01] MEDS: Loratadine 10 MG TABLET PO SCH (08:59)
[2017-05-01] MEDS: Sucralfate 1 GM TABLET PO SCH ×2 (08:59→12:50)
[2017-05-01] MEDS: metroNIDAZOLE 500 MG TABLET PO SCH ×2 (08:59→14:52)
[2017-05-01] MEDS: Gabapentin 300 MG CAPSULE PO SCH (08:59)
[2017-05-01] MEDS: carBAMazepine 200 MG TABLET PO SCH (08:59)
[2017-05-01] MEDS: diazePAM 2 MG TABLET PO SCH (08:59)
[2017-05-01] MEDS: Topiramate 100 MG TABLET PO SCH (09:03)
[2017-05-01] MEDS ORDERED: Sennosides/Docusate Sodium TABLET PO SCH ×2 (11:00→12:45)
--- NOTE | 2017-05-01 11:41 | Internal Med Progress Note ---
Date of Encounter: 05/01/17 Time of Encounter: 11:41 - Assessment and plan (1) GI bleeding Current Visit: Yes Status: Resolved Qualifiers: GI bleed type/associated pathology: anorectal hemorrhage Qualified Code(s) : K62.5 - Hemorrhage of anus and rectum (2) Enteritis Current Visit: Yes Status: Acute (3) DVT prophylaxis Current Visit: Yes Status: Acute (4) GERD (gastroesophageal reflux disease) Current Visit: Yes Status: Chronic Qualifiers: Esophagitis presence: esophagitis presence not specified Qualified Code(s) : K21.9 - Gastro-esophageal reflux disease without esophagitis (5) HTN (hypertension) Current Visit: Yes Status: Chronic Qualifiers: Hypertension type: essential hypertension Qualified Code(s): I10 - Essential (primary) hypertension (6) HLD (hyperlipidemia) Current Visit: Yes Status: Chronic Qualifiers: Hyperlipidemia type: pure hypercholesterolemia Qualified Code(s): E78.00 - Pure hypercholesterolemia, unspecified; E78.0 - Pure hypercholesterolemia (7) COPD (chronic obstructive pulmonary disease) Current Visit: Yes Status: Chronic Qualifiers: COPD type: unspecified COPD Qualified Code(s): J44.9 - Chronic obstructive pulmonary disease, unspecified (8) Weakness Current Visit: Yes Status: Acute (9) Incomplete bladder emptying Current Visit: Yes Status: Acute - Subjective Interval history: Pt seen and examined. Sitting in chair and reports of feeling better overall. [facility] is not able to leave due to preauthorization issues. No overnight issues were reported. Vitals within acceptable range will continue oral antibiotics to complete therapy for ten days. - Constitutional Vitals: Temp Pulse Resp BP Pulse Ox 97.6 F 67 16 119/81 99 05/01/17 10:59 05/01/17 10:59 05/01/17 10:59 05/01/17 10:59 05/01/17 10:59 General appearance: Present: cooperative, A&O X 3, pleasant, no acute distress, obese, answers questions appropriately - Head Head exam: Present: atraumatic, normocephalic - Eye Eye exam: Present: conjuntiva pink, sclera anicteric - Respiratory Respiratory exam: Absent: respiratory distress, wheezes - Cardiovascular Cardiovascular exam: Present: RRR, +S1, +S2. Absent: diastolic murmur, gallop, rubs, systolic murmur - GI/Abdominal GI/Abdominal exam: Present: normal bowel sounds, soft, no peritoneal signs. Absent: distended, tenderness - Extremities Exam Extremities exam: Present: warm, radial pulses palpable and symmetrical. Absent : calf tenderness - Neurological Exam Neurological exam: Present: alert, oriented X3 Internal Medicine: Result - Labs CBC & Chem 7: 04/30/17 04:04 04/30/17 04:04 - ABG Interpretation ABG results: PT/INR, D-dimer PT 11.7 Seconds (9.4-12.1) 04/27/17 02:46 - VTE Documentation of Mechanical Device: Intermittent pneumatic compression device Consult Discharge Plan - Plan Additional Instructions: Please follow up with your primary care physician and urologist within five days after your discharge from the hospital. Please continue oral antibiotics for a total of 5 days. Last day of antibiotics : 05/05/17 You will be discharged with ramos catheter. Please follow up with urology after your discharge from the hospital. Please resume all your home medications after your discharge from the hospital. Please closely monitor your blood pressure at home. Hold your blood pressure medications if your systolic blood pressure is less than 120. Referrals: Ambreen Berger, ROTARY ENVELOPE MACHINE OPERATOR [Primary Care Provider] - Prescriptions: diazePAM [Valium] 2 mg PO BID #10 Gabapentin [Neurontin] 300 mg PO BID #10 HYDROcodone/Acet 10/325 mg [[place] 10-325 mg] 1 tab PO BID PRN #20 PRN Reason: Pain
[2017-05-01] MEDS ORDERED: *HR* Belladonna Alkaloids/Opium 30 MG RECTAL SUPPOSITORY RC ONE (13:30)
[2017-05-01 15:06] VITALS: BP 108/53
== END 2017-05-01 16:05 | DRG 392 ==
LOC: EMEROO 13:33 → 3ANU 13:33 → SUATTDRO 18:38
PROVIDERS: ADMIT Internal Medicine Endocrinology, Diabetes & Metabolism; ATTEND Internal Medicine
PROC: ENDOEDS (2017-04-28 14:00)
PROC: ENDOCBX (2017-04-29 14:00)

== ENCOUNTER 2019-11-10 20:06 | Observation (INO) ==
[2019-11-10 21:03] LABS: Basophils % 0.4 %; Eosinophils # 0.2 K/mcL (0.0-0.6); Eosinophils % 2.5 %; Hematocrit 45.6 % (37.5-50.1); Hemoglobin 16.1 g/dL (12.9-16.9); Immature Granulocytes % 0.3 % (0-4); Lymphocytes # 3.1 K/mcL (0.6-4.6); Lymphocytes % 43.7 %; Mean Corpuscular HGB Conc 35.3 g/dL (31.6-35.5); Mean Corpuscular Hemoglobin 32.4 pg (28.0-33.3); Mean Corpuscular Volume 91.8 fL (83.0-100.0); Mean Platelet Volume 10.3 fL (9.4-12.4); Monocytes # 0.7 K/mcL (0.0-1.3); Monocytes % 9.3 %; Neutrophils # 3.1 K/mcL (1.6-8.9); Platelet Count 162 K/mcL (140-400); Red Blood Count 4.97 M/mcL (4.19-5.50); Red Cell Distribution Width 12.7 % (11.5-14.5); Segmented Neutrophils % 43.8 %; White Blood Count 7.1 K/mcL (4.3-11.1)
[2019-11-10 21:18] LABS: Bilirubin,Urine Negative (Negative); Blood,Urine Negative (Negative); Clarity,Urine Clear (Clear); Color,Urine Yellow (Yellow); Glucose,Urine (UA) Normal (Normal); Ketones,Urine Negative (Negative); Leukocyte Esterase,Urine Negative (Negative); Nitrite,Urine Negative (Negative); PH,Urine 6.5 pH Units (5.0-8.0); Protein,Urine Negative (Neg-Trace); Specific Gravity,Urine 1.017 (1.010-1.025); Urobilinogen,Urine Normal (Normal)
[2019-11-10 21:22] LABS: Alanine Aminotransferase 40 Units/L (7-52); Albumin 4.6 g/dL (3.5-5.7); Albumin/Globulin Ratio 1.7 (1.1-2.2); Alkaline Phosphatase 64 Units/L (34-104); Aspartate Amino Transferase 28 Units/L (13-39); BUN/Creatinine Ratio 18 (6-26); Bilirubin,Direct 0.1 mg/dL (0.0-0.2); Bilirubin,Indirect 0.3 mg/dL (0.0-1.0); Bilirubin,Total 0.4 mg/dL (0.3-1.0); Blood Urea Nitrogen 13 mg/dL (6-20); Calcium 9.7 mg/dL (8.6-10.3); Carbon Dioxide 22 mEq/L (23-29); Chloride 107 mEq/L (98-107); Ethanol < 10 mg/dL (Less than 10); Globulin 2.7 g/dL (2.4-3.5); Glucose 103 mg/dL (70-105); Osmolality,Calculated 284 (280-300); Potassium 3.6 mEq/L (3.5-5.1); Sodium 137 mEq/L (136-145); Total Protein 7.3 g/dL (6.4-8.9); Troponin I < 0.03 ng/mL (< 0.04); eGFR For African Americans > 60 (> 60); eGFR For Non-African Americans > 60 (> 60)
[2019-11-10 21:30] LABS: Amphetamine Screen,Urine Negative ng/mL (Cutoff=1000); Barbiturate Screen,Urine Negative ng/mL (Cutoff=200); Benzodiazepines Screen,Urine Negative ng/mL (Cutoff=200); Cannabinoid Screen,Urine Negative ng/mL (Cutoff = 50); Cocaine Screen,Urine Negative ng/mL (Cutoff= 300); Opiate Screen,Urine Positive ng/mL (Cutoff=300); Phencyclidine Screen,Urine Negative ng/mL (Cutoff=25)
[2019-11-11] MEDS ORDERED: Ondansetron 4 MG/2 ML VIAL IVP PRN (00:23)
[2019-11-11] MEDS ORDERED: Naloxone 0.4 MG/ML INJ IVP PRN (00:23)
[2019-11-11 00:57] LABS: Basophils % 0.5 %; Eosinophils # 0.3 K/mcL (0.0-0.6); Eosinophils % 3.4 %; Hematocrit 47.4 % (37.5-50.1); Hemoglobin 16.5 g/dL (12.9-16.9); Immature Granulocytes % 0.2 % (0-4); Lymphocytes # 4.1 K/mcL (0.6-4.6); Lymphocytes % 47.8 %; Mean Corpuscular HGB Conc 34.8 g/dL (31.6-35.5); Mean Corpuscular Volume 91.9 fL (83.0-100.0); Mean Platelet Volume 9.9 fL (9.4-12.4); Monocytes # 0.7 K/mcL (0.0-1.3); Monocytes % 8.6 %; Neutrophils # 3.4 K/mcL (1.6-8.9); Platelet Count 170 K/mcL (140-400); Red Blood Count 5.16 M/mcL (4.19-5.50); Red Cell Distribution Width 12.6 % (11.5-14.5); Segmented Neutrophils % 39.5 %; White Blood Count 8.5 K/mcL (4.3-11.1)
[2019-11-11 01:16] LABS: BUN/Creatinine Ratio 14 (6-26); Blood Urea Nitrogen 12 mg/dL (6-20); Calcium 9.9 mg/dL (8.6-10.3); Carbon Dioxide 24 mEq/L (23-29); Chloride 105 mEq/L (98-107); Glucose 88 mg/dL (70-105); Magnesium 1.9 mg/dL (1.6-2.6); Osmolality,Calculated 285 (280-300); Phosphorous 5.4 mg/dL (2.7-4.5); Potassium 3.8 mEq/L (3.5-5.1); Sodium 138 mEq/L (136-145); eGFR For African Americans > 60 (> 60); eGFR For Non-African Americans > 60 (> 60)
[2019-11-11 01:54] LABS: Carbamazepine (Tegretol) 7 mcg/mL (4-12)
[2019-11-11] MEDS: 0.9 % Sodium Chloride 1,000 ML IVC SCH ×2 (02:38→12:47)
[2019-11-11] MEDS: Ipratropium/Albuterol Neb 3 ML IH SCH ×2 (03:37→07:34)
[2019-11-11] MEDS ORDERED: Ipratropium/Albuterol Neb 3 ML IH PRN (10:17)
[2019-11-11] MEDS: Acetaminophen 325 MG TABLET PO PRN ×2 (12:53→20:14)
[2019-11-11] MEDS: *HR* HYDROcodone/Acet 10/325 mg TABLET PO PRN (15:55)
[2019-11-11] MEDS: Pregabalin 25 MG CAPSULE PO SCH (20:14)
[2019-11-11] MEDS: Topiramate 100 MG TABLET PO SCH (20:14)
[2019-11-11] MEDS: carBAMazepine 200 MG TABLET PO SCH (20:14)
[2019-11-12 05:42] LABS: Hematocrit 47.3 % (37.5-50.1); Hemoglobin 16.9 g/dL (12.9-16.9); Mean Corpuscular HGB Conc 35.7 g/dL (31.6-35.5); Mean Corpuscular Hemoglobin 32.8 pg (28.0-33.3); Mean Corpuscular Volume 91.7 fL (83.0-100.0); Mean Platelet Volume 10.4 fL (9.4-12.4); Platelet Count 178 K/mcL (140-400); Red Blood Count 5.16 M/mcL (4.19-5.50); Red Cell Distribution Width 12.7 % (11.5-14.5); White Blood Count 7.2 K/mcL (4.3-11.1)
[2019-11-12 06:09] LABS: BUN/Creatinine Ratio 16 (6-26); Blood Urea Nitrogen 12 mg/dL (6-20); Calcium 9.6 mg/dL (8.6-10.3); Carbon Dioxide 18 mEq/L (23-29); Chloride 109 mEq/L (98-107); Glucose 93 mg/dL (70-105); Osmolality,Calculated 283 (280-300); Potassium 3.5 mEq/L (3.5-5.1); Sodium 137 mEq/L (136-145); eGFR For African Americans > 60 (> 60); eGFR For Non-African Americans > 60 (> 60)
[2019-11-12] MEDS: Ascorbic Acid 500 MG TABLET PO SCH ×2 (09:23→20:11)
[2019-11-12] MEDS: Cholecalciferol (D-3) 1,000 UNIT (25MCG) TABLET PO SCH (09:23)
[2019-11-12] MEDS: lisinopriL 10 MG TABLET PO SCH (09:23)
[2019-11-12] MEDS: Topiramate 100 MG TABLET PO SCH ×2 (09:23→20:11)
[2019-11-12] MEDS: Lactobacillus 1 EACH CAP.SPRINK PO SCH ×2 (09:23→20:11)
[2019-11-12] MEDS: carBAMazepine 200 MG TABLET PO SCH ×2 (09:23→20:11)
[2019-11-12] MEDS: Pregabalin 25 MG CAPSULE PO SCH ×2 (09:23→20:13)
[2019-11-12] MEDS: (Lubiprostone [Amitiza] 24 MCG) PO SCH ×2 (09:25→20:13)
[2019-11-12] MEDS: Acetaminophen 325 MG TABLET PO PRN (16:38)
[2019-11-13] MEDS: *HR* HYDROcodone/Acet 10/325 mg TABLET PO PRN (03:14)
[2019-11-13] MEDS: Pregabalin 25 MG CAPSULE PO SCH ×2 (08:31→22:00)
[2019-11-13] MEDS: Topiramate 100 MG TABLET PO SCH ×2 (08:31→22:00)
[2019-11-13] MEDS: carBAMazepine 200 MG TABLET PO SCH ×2 (08:31→22:00)
[2019-11-13] MEDS: Lactobacillus 1 EACH CAP.SPRINK PO SCH ×2 (08:32→22:00)
[2019-11-13] MEDS: Ascorbic Acid 500 MG TABLET PO SCH ×2 (08:32→22:00)
[2019-11-13] MEDS: lisinopriL 10 MG TABLET PO SCH (08:32)
[2019-11-13] MEDS: (Lubiprostone [Amitiza] 24 MCG) PO SCH ×2 (08:32→22:00)
[2019-11-13] MEDS: Cholecalciferol (D-3) 1,000 UNIT (25MCG) TABLET PO SCH (08:32)
[2019-11-13 10:10] LABS: Hematocrit 50.6 % (37.5-50.1); Hemoglobin 18.2 g/dL (12.9-16.9); Mean Corpuscular Hemoglobin 32.9 pg (28.0-33.3); Mean Corpuscular Volume 91.5 fL (83.0-100.0); Mean Platelet Volume 10.3 fL (9.4-12.4); Platelet Count 179 K/mcL (140-400); Red Blood Count 5.53 M/mcL (4.19-5.50); Red Cell Distribution Width 12.8 % (11.5-14.5); White Blood Count 8.2 K/mcL (4.3-11.1)
[2019-11-13 10:30] LABS: BUN/Creatinine Ratio 27 (6-26); Blood Urea Nitrogen 23 mg/dL (6-20); Calcium 9.6 mg/dL (8.6-10.3); Carbon Dioxide 18 mEq/L (23-29); Chloride 105 mEq/L (98-107); Glucose 107 mg/dL (70-105); Osmolality,Calculated 288 (280-300); Potassium 3.2 mEq/L (3.5-5.1); Sodium 137 mEq/L (136-145); eGFR For African Americans > 60 (> 60); eGFR For Non-African Americans > 60 (> 60)
[2019-11-14 03:24] LABS: Hematocrit 50.5 % (37.5-50.1); Hemoglobin 17.9 g/dL (12.9-16.9); Mean Corpuscular HGB Conc 35.4 g/dL (31.6-35.5); Mean Corpuscular Hemoglobin 32.4 pg (28.0-33.3); Mean Corpuscular Volume 91.5 fL (83.0-100.0); Mean Platelet Volume 10.8 fL (9.4-12.4); Platelet Count 191 K/mcL (140-400); Red Blood Count 5.52 M/mcL (4.19-5.50); Red Cell Distribution Width 12.8 % (11.5-14.5); White Blood Count 9.4 K/mcL (4.3-11.1)
[2019-11-14 03:36] LABS: BUN/Creatinine Ratio 30 (6-26); Blood Urea Nitrogen 22 mg/dL (6-20); Calcium 9.4 mg/dL (8.6-10.3); Carbon Dioxide 17 mEq/L (23-29); Chloride 107 mEq/L (98-107); Glucose 90 mg/dL (70-105); Osmolality,Calculated 283 (280-300); Potassium 3.4 mEq/L (3.5-5.1); Sodium 135 mEq/L (136-145); eGFR For African Americans > 60 (> 60); eGFR For Non-African Americans > 60 (> 60)
[2019-11-14] MEDS: (Lubiprostone [Amitiza] 24 MCG) PO SCH ×2 (08:45→21:02)
[2019-11-14] MEDS: lisinopriL 10 MG TABLET PO SCH (08:46)
[2019-11-14] MEDS: Cholecalciferol (D-3) 1,000 UNIT (25MCG) TABLET PO SCH (08:53)
[2019-11-14] MEDS: Lactobacillus 1 EACH CAP.SPRINK PO SCH ×2 (08:53→21:01)
[2019-11-14] MEDS: Ascorbic Acid 500 MG TABLET PO SCH ×2 (08:53→21:01)
[2019-11-14] MEDS: carBAMazepine 200 MG TABLET PO SCH ×2 (08:54→21:01)
[2019-11-14] MEDS: Topiramate 100 MG TABLET PO SCH ×2 (08:54→21:01)
[2019-11-14] MEDS: Pregabalin 25 MG CAPSULE PO SCH ×2 (08:54→21:01)
[2019-11-15] MEDS ORDERED: Potassium Chloride Elixir 20 MEQ/15 ML UDC PO ONE (08:10)
[2019-11-15] MEDS: carBAMazepine 200 MG TABLET PO SCH ×2 (08:55→20:44)
[2019-11-15] MEDS: Pregabalin 25 MG CAPSULE PO SCH ×2 (08:55→20:44)
[2019-11-15] MEDS: Cholecalciferol (D-3) 1,000 UNIT (25MCG) TABLET PO SCH (08:55)
[2019-11-15] MEDS: Topiramate 100 MG TABLET PO SCH ×2 (08:55→20:44)
[2019-11-15] MEDS: lisinopriL 10 MG TABLET PO SCH (08:55)
[2019-11-15] MEDS: Ascorbic Acid 500 MG TABLET PO SCH ×2 (08:55→20:43)
[2019-11-15] MEDS: Lactobacillus 1 EACH CAP.SPRINK PO SCH ×2 (08:55→20:44)
[2019-11-15] MEDS: (Lubiprostone [Amitiza] 24 MCG) PO SCH ×2 (08:56→20:44)
[2019-11-16] MEDS: Lactobacillus 1 EACH CAP.SPRINK PO SCH ×2 (10:06→21:07)
[2019-11-16] MEDS: Topiramate 100 MG TABLET PO SCH ×2 (10:06→21:08)
[2019-11-16] MEDS: Ascorbic Acid 500 MG TABLET PO SCH ×2 (10:07→21:08)
[2019-11-16] MEDS: carBAMazepine 200 MG TABLET PO SCH ×2 (10:07→21:08)
[2019-11-16] MEDS: (Lubiprostone [Amitiza] 24 MCG) PO SCH (10:07)
[2019-11-16] MEDS: Cholecalciferol (D-3) 1,000 UNIT (25MCG) TABLET PO SCH (10:07)
[2019-11-16] MEDS: Pregabalin 25 MG CAPSULE PO SCH ×2 (10:07→21:41)
[2019-11-16] MEDS: Acetaminophen 325 MG TABLET PO PRN (16:00)
[2019-11-17] MEDS: Acetaminophen 325 MG TABLET PO PRN (05:30)
[2019-11-17] MEDS: carBAMazepine 200 MG TABLET PO SCH (08:32)
[2019-11-17] MEDS: Topiramate 100 MG TABLET PO SCH (08:32)
[2019-11-17] MEDS: Cholecalciferol (D-3) 1,000 UNIT (25MCG) TABLET PO SCH (08:33)
[2019-11-17] MEDS: Ascorbic Acid 500 MG TABLET PO SCH (08:33)
[2019-11-17] MEDS: Pregabalin 25 MG CAPSULE PO SCH (08:38)
[2019-11-17] MEDS: Lactobacillus 1 EACH CAP.SPRINK PO SCH (08:38)
[2019-11-17 10:27] VITALS: BP 135/79
== END 2019-11-17 13:28 ==
LOC: EMEROOARM 20:06 → 3ANU 20:06 → SUATTDRO 11-11 01:10 → 3ANU 11-11 01:38 → SUATTDRO 11-14 15:13
PROVIDERS: ADMIT Student in an Organized Health Care Education/Training Program; ATTEND Internal Medicine